=== PATIENT | female | born 1985 | race Caucasian/White ===

== ENCOUNTER 2016-08-16 15:37 | Emergency (ER) | payer SELFPAY ==
[~2016-08-16] VITALS: Ht 162.6 cm; Wt 71.0 kg
[~2016-08-16 15:37] MED LIST: CEPH500 PO
[2016-08-16 15:46] VITALS: BP 135/86; PULSE 85; RESP 16; TEMP 98.6; O2SAT 99
[2016-08-16] MEDS ORDERED: SODIUM CHLOR 0.9% 1000 ML INJ 1,000 ML IV SCH (15:53)
[2016-08-16] MEDS ORDERED: SODIUM CHLORIDE 0.9% FLUSH 5 ML FLUSH IVF PRN (16:00)
[2016-08-16] MEDS ORDERED: HYDROmorphone HCL PF 1 MG/ML VIAL IV PUSH ONE (16:00)
[2016-08-16] MEDS ORDERED: ONDANSETRON HCL 4 MG/2 ML VIAL IVP ONE (16:00)
--- NOTE | 2016-08-16 16:03 | PD ---
HPI Chief Complaint: Abdominal Pain Time Seen by Provider: 16:00 Travel History International Travel<30 days: No Contact w/Intl Traveler<30days: No Traveled to known affect area: No History of Present Illness HPI 31-year-old female with history of hepatitis C, presents to the ER today with right upper quadrant abdominal pains that started several days ago, constant in nature, 8 out of 10, along with nausea and green vomiting. She denies any diarrhea, fevers, or any other symptoms. Modifying Factors: None Associated Signs & Symptoms: Right upper Quadrant abdominal pains with nausea and vomiting Risk Factors: Hepatitis PFSH Past Medical History Bipolar Disorder: Yes Anxiety: Yes (DX 2007) Depression: Yes (DX 2007) Cancer: No Cardiovascular Problems: No Chemotherapy: No Diminished Hearing: No Endocrine: No GERD: Yes Hepatitis: Yes (C) Immune Disorder: No Implanted Vascular Access Dvce: No Musculoskeletal: No Neurologic: No Psychiatric: Yes Reproductive: No Respiratory: No Immunizations Current: Yes Radiation Therapy: No Sickle Cell Disease: No ?: Unknown LMP: 07/30/16 : 0 Past Surgical History Other Surgery: No Social History Alcohol Use: Yes (RARE) Tobacco Use: Yes (08/02 PPD) Substance Use: Yes (THC, HX DILAUDID denies recent) Allergies-Medications (Allergen,Severity, Reaction): Coded Allergies: No Known Allergies (Verified , 08/16/16) Reported Meds & Prescriptions Reported Meds & Active Scripts Active No Active Prescriptions or Reported Medications Review of Systems Except as stated in HPI: all other systems reviewed are Neg Physical Exam Narrative GENERAL: Well-nourished, well-developed young white female patient in no acute distress. SKIN: Warm and dry. HEAD: Normocephalic. EYES: No scleral icterus. No injection or drainage. NECK: Supple, trachea midline. CARDIOVASCULAR: Regular rate and rhythm without murmurs, gallops, or rubs. RESPIRATORY: Breath sounds equal bilaterally. No accessory muscle use. GASTROINTESTINAL: Abdomen soft, right upper quadrant tenderness without guarding or rebound, nondistended. MUSCULOSKELETAL: No cyanosis, or edema. BACK: Nontender without obvious deformity. No CVA tenderness. Data Data Last Documented VS Vital Signs Date Time Temp Pulse Resp B/P Pulse Ox O2 Delivery O2 Flow Rate FiO2 08/16/16 16:17 98 Room Air 08/16/16 15:46 98.6 85 16 135/86 Orders Complete Blood Count With Diff (08/16/16 15:53) Comprehensive Metabolic Panel (08/16/16 15:53) Lipase (08/16/16 15:53) Urinalysis - C+S If Indicated (08/16/16 15:53) Iv Access Insert/Monitor (08/16/16 15:53) Ecg Monitoring (08/16/16 15:53) Oximetry (08/16/16 15:53) Ondansetron Inj (Zofran Inj) (08/16/16 16:00) Sodium Chlor 0.9% 1000 Ml Inj (Ns 1000 M (08/16/16 15:53) Sodium Chloride 0.9% Flush (Ns Flush) (08/16/16 16:00) Ed Urine Pregnancytest Poc (08/16/16 15:53) Hydromorphone Pf Inj (Dilaudid Pf Inj) (08/16/16 16:00) Ct Abd/Pel W Iv Contrast(Rout) (08/16/16 16:00) Iohexol 350 Inj (Omnipaque 350 Inj) (08/16/16 18:08) Labs Laboratory Tests Test 08/16/16 16:11 White Blood Count 3.6 TH/MM3 Red Blood Count 4.64 MIL/MM3 Hemoglobin 12.8 GM/DL Hematocrit 37.5 % Mean Corpuscular Volume 80.8 FL Mean Corpuscular Hemoglobin 27.6 PG Mean Corpuscular Hemoglobin 34.2 % Concent Red Cell Distribution Width 12.8 % Platelet Count 328 TH/MM3 Mean Platelet Volume 8.1 FL Neutrophils (%) (Auto) 47.4 % Lymphocytes (%) (Auto) 37.8 % Monocytes (%) (Auto) 11.9 % Eosinophils (%) (Auto) 2.0 % Basophils (%) (Auto) 0.9 % Neutrophils # (Auto) 1.7 TH/MM3 Lymphocytes # (Auto) 1.4 TH/MM3 Monocytes # (Auto) 0.4 TH/MM3 Eosinophils # (Auto) 0.1 TH/MM3 Basophils # (Auto) 0.0 TH/MM3 CBC Comment DIFF FINAL Differential Comment Urine Collection Type CLEAN CATCH Urine Color YELLOW Urine Turbidity SLIGHT Urine pH 6.5 Urine Specific [place] 1.022 Urine Protein NEG mg/dL Urine Glucose (UA) NEG mg/dL Urine Ketones TRACE mg/dL Urine Occult Blood TRACE Urine Nitrite NEG Urine Bilirubin NEG Urine Leukocyte Esterase NEG Urine RBC 4-9 /hpf Urine WBC 0-2 /hpf Urine Squamous Epithelial 0-5 /hpf Cells Urine Bacteria OCC /hpf Urine Mucus OCC /lpf Microscopic Urinalysis Comment CULT NOT INDICATED Sodium Level 140 MEQ/L Potassium Level 3.9 MEQ/L Chloride Level 105 MEQ/L Carbon Dioxide Level 25.3 MEQ/L Anion Gap 10 MEQ/L Blood Urea Nitrogen 12 MG/DL Creatinine 0.74 MG/DL Estimat Glomerular Filtration 93 ML/MIN Rate Random Glucose 105 MG/DL Calcium Level 8.8 MG/DL Total Bilirubin 0.3 MG/DL Aspartate Amino Transf 11 U/L (AST/SGOT) Alanine Aminotransferase 17 U/L (ALT/SGPT) Alkaline Phosphatase 65 U/L Total Protein 8.1 GM/DL Albumin 3.4 GM/DL Lipase 175 U/L MDM Medical Decision Making Medical Screen Exam Complete: Yes Emergency Medical Condition: Yes Medical Record Reviewed: Yes Interpretation(s) Laboratory Tests Test 08/16/16 16:11 White Blood Count 3.6 TH/MM3 (4.0-11.0) Monocytes (%) (Auto) 11.9 % (0.0-8.0) Neutrophils # (Auto) 1.7 TH/MM3 (1.8-7.7) Urine Ketones TRACE mg/dL (NEG) Urine Occult Blood TRACE (NEG) Urine RBC 4-9 /hpf (0-3) Urine Bacteria OCC /hpf (NONE) Aspartate Amino Transf 11 U/L (15-37) (AST/SGOT) Last 24 hours Impressions Abdomen/Pelvis CT 08/16/16 1600 Signed Impressions: Service Date/Time: July 17:54 - CONCLUSION: 1. Small nonobstructing left renal calculus. 2. The gallbladder is unremarkable in appearance. 3. Unremarkable bowel gas pattern with no inflammatory change or obstruction 4. Stable sclerosis involving the left sacroiliac joint. Noah Miller MD Differential Diagnosis Right upper quadrant abdominal painshepatitis versus cholecystitis versus gastroenteritis versus renal colic Narrative Course Lab work shows no significant metabolic issues or UTI. CT did not show any signs of acute intra-abdominal processes. LFTs are fairly normal. At this point, I do not see any signs of significant acute processes and my plan would be to release the patient with symptomatic relief and follow-up to primary care physician. The plan has been discussed with the patient and she states understanding. Diagnosis Primary Impression: UNSPECIFIED ABDOMINAL PAIN Med/Other Pt SpecificInfo: Prescription(s) given Scripts Ondansetron Odt (Zofran Odt)4 Mg Tab4 Mg SL Q6HR PRN (Nausea/Vomiting) #7 TAB Ref 0 Prov:Nino Alvarez MD 08/16/16 Dicyclomine (Bentyl)20 Mg Tab20 Mg PO TID PRN (Bowel Management) #15 TAB Ref 0 Prov:Nino Alvarez MD 08/16/16 Disposition: 01 DISCHARGE HOME Condition: Stable Nino Alvarez MD Aug 16, 2016 16:03
[2016-08-16 16:17] VITALS: O2SAT 98
[2016-08-16 16:33] LABS: AUTOMATED NEUTROPHIL # 1.7 TH/MM3 (1.8-7.7); BASOPHIL % 0.9 % (0.0-2.0); EOSINOPHIL # 0.1 TH/MM3 (0-0.4); HEMATOCRIT 37.5 % (35.0-46.0); HEMO FLAGS DIFF FINAL; LYMPH % 37.8 % (9.0-44.0); LYMPHOCYTE # 1.4 TH/MM3 (1.0-4.8); MEAN CELL VOLUME 80.8 FL (80.0-100.0); MEAN CORPUSCULAR HEMOGLOBIN 27.6 PG (27.0-34.0); MEAN CORPUSCULAR HGB CONC 34.2 % (32.0-36.0); MONO % 11.9 % (0.0-8.0); NEUT % 47.4 % (16.0-70.0); PLATELET COUNT 328 TH/MM3 (150-450); RED BLOOD COUNT 4.64 MIL/MM3 (4.00-5.30); RED CELL DISTRIBUTION WIDTH 12.8 % (11.6-17.2); WHITE BLOOD COUNT 3.6 TH/MM3 (4.0-11.0)
[2016-08-16 16:34] LABS: BLOOD, URINE TRACE (NEG); GLUCOSE,URINE NEG (NEG); KETONE, URINE TRACE mg/dL (NEG); NITRITE,URINE NEG (NEG); PH, URINE 6.5 (5.0-8.5)
[2016-08-16 16:44] LABS: METHOD OF COLLECTION CLEAN CATCH; MUCUS URINE OCC /lpf (OCC); SQUAMOUS EPITHELIAL CELL URINE 0-5 /hpf (0-5); URINE COLOR YELLOW (YELLW/STRAW)
[2016-08-16 16:45] LABS: WBC, URINE 0-2 /hpf (0-5)
[2016-08-16 16:46] LABS: BACTERIA, URINE OCC /hpf; COMMENT (UR) CULT NOT INDICATED; CULTURE IF INDICATED CULT NOT INDICATED
[2016-08-16 16:53] LABS: CHLORIDE 105 MEQ/L (98-107); POTASSIUM 3.9 MEQ/L (3.5-5.1); SODIUM (NA) 140 MEQ/L (136-145)
[2016-08-16 16:56] LABS: ANION GAP 10 MEQ/L (5-15); BICARBONATE 25.3 MEQ/L (21.0-32.0)
[2016-08-16 16:57] LABS: BLOOD UREA NITROGEN 12 MG/DL (7-18)
[2016-08-16 16:59] LABS: ALT (GPT) 17 U/L (10-53); AST (GOT) 11 U/L (15-37)
[2016-08-16 17:00] LABS: GLOMERULAR FILTRATION RATE 93 ML/MIN (>89)
[2016-08-16 17:01] LABS: TOTAL BILIRUBIN ADULT 0.3 MG/DL (0.2-1.0)
[2016-08-16 17:02] LABS: ALKALINE PHOSPHATASE 65 U/L (45-117)
[2016-08-16] MEDS ORDERED: IOHEXOL 350 MG/ML 10 ML VIAL (for RAD DIAG) IV ONE (18:08)
--- NOTE | 2016-08-16 18:17 | RADHPO ---
EXAM DATE/TIME: 08/16/2016 17:54 [facility] COMPARISON: CT ABDOMEN & PELVIS W/O CONTRAST, April 14, 2016, 17:08. INDICATIONS : Right upper quadrant abdominal pain. Nausea. Vomiting. History of known renal calculi. IV CONTRAST: 75 cc Omnipaque 350 (iohexol) IV ORAL CONTRAST: No oral contrast ingested. RADIATION DOSE: 9.00 CTDIvol (mGy) MEDICAL HISTORY : Gastroesophageal reflux disease. Hepatitis C. SURGICAL HISTORY : None. ENCOUNTER: Initial ACUITY: 3 days PAIN SCALE: 8/10 LOCATION: Right upper quadrant TECHNIQUE: Volumetric scanning of the abdomen and pelvis was performed. Using automated exposure control and ad justment of the mA and/or kV according to patient size, radiation dose was kept as low as reasonably achievable to obtain optimal diagnostic quality images. FINDINGS: LOWER LUNGS: The visualized lower lungs are clear. LIVER: Homogeneous density without lesion. There is no dilation of the biliary tree. No calcified gallston es. SPLEEN: Normal size without lesion. PANCREAS: Within normal limits. KIDNEYS: Normal in size and shape. There is no mass,or hydronephrosis. There is a small nonobstructing left r enal calculus on image #36 of the axial sequences. ADRENAL GLANDS: Within normal limits. VASCULAR: There is no aortic aneurysm. BOWEL/MESENTERY: The stomach, small bowel, and colon demonstrate no acute abnormality. There is no free intraperitone al air or fluid. ABDOMINAL WALL: Within normal limits. RETROPERITONEUM: There is no lymphadenopathy. BLADDER: No wall thickening or mass. REPRODUCTIVE: Within normal limits. INGUINAL: There is no lymphadenopathy or hernia. MUSCULOSKELETAL: Severe sclerosis is again noted surrounding the left sacroiliac joint. CONCLUSION: 1. Small nonobstructing left renal calculus. 2. The gallbladder is unremarkable in appearance. 3. Unremarkable bowel gas pattern with no inflammatory change or obstruction 4. Stable sclerosis involving the left sacroiliac joint. Noah Miller MD on August 16, 2016 at 18:12 Board Certified Radiologist. This report was verified electronically.
[2016-08-16] MEDS ORDERED: ZOFR4TAB3 SL (18:26)
[2016-08-16] MEDS ORDERED: BENT20TA PO (18:26)
[2016-08-16] MEDS ORDERED: DICYCLOMINE HCL 20 MG/2 ML VIAL IM ONE (18:30)
[2016-08-16 19:06] VITALS: BP 140/84; TEMP 97.9
== END 2016-08-16 19:09 | disposition home or self-care (01) ==
LOC: PHED 15:37
DX: R10.9 Unspecified abdominal pain (principal); R11.2 Nausea with vomiting, unspecified; K21.9 Gastro-esophageal reflux disease without esophagitis; F17.210 Nicotine dependence, cigarettes, uncomplicated; F12.90 Cannabis use, unspecified, uncomplicated; F11.90 Opioid use, unspecified, uncomplicated
CPT/HCPCS: 74177; 80053; 81001; 83690; 84703; 85025; 96361; 96372; 96374; 96375; 99284; J0500; J1170; J2405; J7030; Q9967

== ENCOUNTER 2017-04-12 09:36 | Emergency (ER) | payer SELFPAY ==
[~2017-04-12] VITALS: Ht 162.6 cm; Wt 68.5 kg
[~2017-04-12 09:36] MED LIST changes: +BENT20TA PO; -CEPH500 PO; +ZOFR4TAB3 SL
[2017-04-12 09:41] VITALS: BP 139/77; PULSE 82; RESP 18; TEMP 98.8; O2SAT 97
--- NOTE | 2017-04-12 09:51 | PD ---
HPI Chief Complaint: GI Complaint Time Seen by Provider: 09:51 Travel History International Travel<30 days: No Contact w/Intl Traveler<30days: No Traveled to known affect area: No History of Present Illness HPI 31-year-old female came to the emergency room with history of left flank and left lower abdomen pain. Patient says this has been going on for past 3 days and the pain comes and goes. Currently it is 4 out of 10. Last night she was curled into a ball because of the pain and at that time it was 7 out of 10. She has been nauseous and throwing up. Last vomiting was 1 hour ago. Patient says she has had few episodes of diarrhea but no blood in her stool. No history of dysuria or hematuria. Upon asking patient said that could be a chance of being since she has had unprotected sex with her boyfriend. Vital signs were stable. She didn't appear to be in any significant distress when I saw her. Patient has been in the emergency room multiple times in the past for abdominal pain. 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 No current vaginal discharge. Patient said 2 weeks ago she had some discharge that was fishy in odor. This has resolved since. PFSH Past Medical History Narrative Medical List of her past medical, surgical, social and family history is reviewed from the nursing note. Bipolar Disorder: Yes Anxiety: Yes (DX 2007) Depression: Yes (DX 2007) Cancer: No Cardiovascular Problems: No Chemotherapy: No Diminished Hearing: No Endocrine: No GERD: Yes Hepatitis: Yes (C) Immune Disorder: No Implanted Vascular Access Dvce: No Musculoskeletal: No Neurologic: No Psychiatric: Yes Reproductive: No Respiratory: No Immunizations Current: Yes Radiation Therapy: No Sickle Cell Disease: No ?: Not LMP: 03/2017 : 0 Past Surgical History Other Surgery: No Social History Alcohol Use: Yes (RARE) Tobacco Use: Yes (08/02 PPD) Substance Use: Yes (THC, HX DILAUDID denies recent) Allergies-Medications (Allergen,Severity, Reaction): Coded Allergies: No Known Allergies (Verified , 04/12/17) Comments No known drug allergies. Reported Meds & Prescriptions Reported Meds & Active Scripts Active Ibuprofen 600 Mg Tab 600 Mg PO Q6H PRN Zofran Odt (Ondansetron Odt) 4 Mg Tab 4 Mg SL Q6HR PRN Narrative Medication List of her home medications reviewed from the nursing note. Review of Systems Except as stated in HPI: all other systems reviewed are Neg Physical Exam Narrative GENERAL: Awake, alert, slightly anxious but no obvious distress SKIN: Focused skin assessment warm/dry. HEAD: Atraumatic. Normocephalic. EYES: Pupils equal and round. No scleral icterus. No injection or drainage. ENT: No nasal bleeding or discharge. Mucous membranes pink and moist. NECK: Trachea midline. No JVD. CARDIOVASCULAR: Regular rate and rhythm. No murmur appreciated. RESPIRATORY: No accessory muscle use. Clear to auscultation. Breath sounds equal bilaterally. GASTROINTESTINAL: Abdomen soft, non-tender, nondistended. Hepatic and splenic margins not palpable. MUSCULOSKELETAL: No obvious deformities. No clubbing. No cyanosis. No edema. NEUROLOGICAL: Awake and alert. No obvious cranial nerve deficits. Motor grossly within normal limits. Normal speech. PSYCHIATRIC: Appropriate mood and affect; insight and judgment normal. Data Data Last Documented VS Vital Signs Date Time Temp Pulse Resp B/P (MAP) Pulse Ox O2 Delivery O2 Flow Rate FiO2 04/12/17 12:03 04/12/17 11:38 81 18 98 Room Air 04/12/17 09:41 98.8 Orders Orders Complete Blood Count With Diff (04/12/17 10:01) Comprehensive Metabolic Panel (04/12/17 10:01) Lipase (04/12/17 10:01) Urinalysis - C+S If Indicated (04/12/17 10:01) Iv Access Insert/Monitor (04/12/17 10:01) Ecg Monitoring (04/12/17 10:01) Oximetry (04/12/17 10:01) Ondansetron Inj (Zofran Inj) (04/12/17 10:15) Sodium Chlor 0.9% 1000 Ml Inj (Ns 1000 M (04/12/17 10:01) Sodium Chloride 0.9% Flush (Ns Flush) (04/12/17 10:15) Ketorolac Inj (Toradol Inj) (04/12/17 10:15) Ed Urine Pregnancytest Poc (04/12/17 10:01) Ct Abd/Pel W/O Iv Contrast (04/12/17 ) Labs Laboratory Tests Test 04/12/17 10:10 White Blood Count 5.9 TH/MM3 Red Blood Count 4.88 MIL/MM3 Hemoglobin 12.9 GM/DL Hematocrit 37.8 % Mean Corpuscular Volume 77.5 FL Mean Corpuscular Hemoglobin 26.5 PG Mean Corpuscular Hemoglobin Concent 34.2 % Red Cell Distribution Width 13.6 % Platelet Count 271 TH/MM3 Mean Platelet Volume 8.3 FL Neutrophils (%) (Auto) 73.7 % Lymphocytes (%) (Auto) 17.9 % Monocytes (%) (Auto) 7.3 % Eosinophils (%) (Auto) 0.8 % Basophils (%) (Auto) 0.3 % Neutrophils # (Auto) 4.4 TH/MM3 Lymphocytes # (Auto) 1.1 TH/MM3 Monocytes # (Auto) 0.4 TH/MM3 Eosinophils # (Auto) 0.0 TH/MM3 Basophils # (Auto) 0.0 TH/MM3 CBC Comment DIFF FINAL Differential Comment Urine Collection Type CLEAN CATCH Urine Color YELLOW Urine Turbidity CLEAR Urine pH 6.0 Urine Specific [place] 1.024 Urine Protein NEG mg/dL Urine Glucose (UA) NEG mg/dL Urine Ketones NEG mg/dL Urine Occult Blood MOD Urine Nitrite NEG Urine Bilirubin NEG Urine Leukocyte Esterase NEG Urine RBC 10-14 /hpf Urine WBC 3-5 /hpf Urine Squamous Epithelial Cells 0-5 /hpf Microscopic Urinalysis Comment CULT NOT INDICATED Urine Collection Time 10:10 Blood Urea Nitrogen 20 MG/DL Creatinine 0.75 MG/DL Random Glucose 110 MG/DL Total Protein 8.4 GM/DL Albumin 3.3 GM/DL Calcium Level 8.8 MG/DL Alkaline Phosphatase 77 U/L Aspartate Amino Transf (AST/SGOT) 17 U/L Alanine Aminotransferase (ALT/SGPT) 19 U/L Total Bilirubin 0.5 MG/DL Sodium Level 135 MEQ/L Potassium Level 4.2 MEQ/L Chloride Level 100 MEQ/L Carbon Dioxide Level 25.5 MEQ/L Anion Gap 10 MEQ/L Estimat Glomerular Filtration Rate 91 ML/MIN Lipase 165 U/L [facility] Medical Decision Making Medical Screen Exam Complete: Yes Emergency Medical Condition: Yes Medical Record Reviewed: Yes Differential Diagnosis Renal colic, UTI, musculoskeletal pain, colitis Narrative Course 11:42 AM blood test results of back and within normal limit. UA has some blood in it. CT scan shows nephrocalcinosis and a chronic left sacroiliitis. Based on this I am comfortable discharging the patient home. She was given pain medication as well as medicine for nausea. Procedures EKG Prior to Arrival: No Diagnosis Primary Impression: Acute gastroenteritis Additional Impression: chronic sacroiliitis Referrals: Primary Care Physician Additional Instructions: Please return to the ER if the condition worsens or any other new concerns. Take the medication for nausea and pain that has been given to you as per the prescription direction. Drink lots of fluid. Follow-up with your primary care. Med/Other Pt SpecificInfo: Prescription(s) given Scripts Ibuprofen (Ibuprofen) 600 Mg Tab 600 MG PO Q6H Y for Pain/Inflammation, #40 TAB 0 Refills Prov: Adeline Parekh MD 04/12/17 Ondansetron Odt (Zofran Odt) 4 Mg Tab 4 MG SL Q6HR Y for Nausea/Vomiting, #15 TAB 0 Refills Prov: Adeline Parekh MD 04/12/17 Disposition: 01 DISCHARGE HOME Condition: Stable Adeline Parekh MD Apr 12, 2017 09:51
[2017-04-12] MEDS ORDERED: SODIUM CHLOR 0.9% 1000 ML INJ 1,000 ML IV SCH (10:01)
[2017-04-12 10:05] VITALS: O2SAT 96
[2017-04-12] MEDS ORDERED: ONDANSETRON HCL 4 MG/2 ML VIAL IVP ONE (10:15)
[2017-04-12] MEDS ORDERED: KETOROLAC TROMETHAMINE 30 MG/ML (IVP) VIAL IVP ONE (10:15)
[2017-04-12] MEDS ORDERED: SODIUM CHLORIDE 0.9% FLUSH 10 ML FLUSH IV FLUSH PRN (10:15)
[2017-04-12 10:28] LABS: BLOOD, URINE MOD (NEG); GLUCOSE,URINE NEG (NEG); KETONE, URINE NEG (NEG); NITRITE,URINE NEG (NEG)
[2017-04-12 10:31] LABS: CHLORIDE 100 MEQ/L (98-107); POTASSIUM 4.2 MEQ/L (3.5-5.1); SODIUM (NA) 135 MEQ/L (136-145)
[2017-04-12 10:32] LABS: AUTOMATED NEUTROPHIL # 4.4 TH/MM3 (1.8-7.7); BASOPHIL % 0.3 % (0.0-2.0); EOSINOPHIL % 0.8 % (0.0-4.0); HEMATOCRIT 37.8 % (35.0-46.0); HEMO FLAGS DIFF FINAL; LYMPH % 17.9 % (9.0-44.0); LYMPHOCYTE # 1.1 TH/MM3 (1.0-4.8); MEAN CELL VOLUME 77.5 FL (80.0-100.0); MEAN CORPUSCULAR HEMOGLOBIN 26.5 PG (27.0-34.0); MEAN CORPUSCULAR HGB CONC 34.2 % (32.0-36.0); MONO % 7.3 % (0.0-8.0); NEUT % 73.7 % (16.0-70.0); PLATELET COUNT 271 TH/MM3 (150-450); RED BLOOD COUNT 4.88 MIL/MM3 (4.00-5.30); RED CELL DISTRIBUTION WIDTH 13.6 % (11.6-17.2); WHITE BLOOD COUNT 5.9 TH/MM3 (4.0-11.0)
[2017-04-12 10:35] LABS: ANION GAP 10 MEQ/L (5-15); BICARBONATE 25.5 MEQ/L (21.0-32.0); BLOOD UREA NITROGEN 20 MG/DL (7-18)
[2017-04-12 10:36] VITALS: BP 125/75; PULSE 64; RESP 18; O2SAT 97
[2017-04-12 10:37] LABS: ALT (GPT) 19 U/L (10-53); AST (GOT) 17 U/L (15-37)
[2017-04-12 10:38] LABS: GLOMERULAR FILTRATION RATE 91 ML/MIN (>89)
[2017-04-12 10:39] LABS: TOTAL BILIRUBIN ADULT 0.5 MG/DL (0.2-1.0)
[2017-04-12 10:40] LABS: ALKALINE PHOSPHATASE 77 U/L (45-117)
[2017-04-12 11:05] LABS: COMMENT (UR) CULT NOT INDICATED; CULTURE IF INDICATED CULT NOT INDICATED; METHOD OF COLLECTION CLEAN CATCH; SQUAMOUS EPITHELIAL CELL URINE 0-5 /hpf (0-5); URINE COLOR YELLOW (YELLW/STRAW)
--- NOTE | 2017-04-12 11:31 | RADRPT ---
EXAM DATE/TIME: 04/12/2017 10:23 [facility] COMPARISON: CT ABDOMEN & PELVIS W/O CONTRAST, April 14, 2016, 17:08. INDICATIONS : Vomiting and left lower quadrant pain and cramping x 2 days. ORAL CONTRAST: No oral contrast ingested. RADIATION DOSE: 7.37 CTDIvol (mGy) MEDICAL HISTORY : Gastroesophageal reflux disease. Hepatitis C. Renal calculi. SURGICAL HISTORY : None. ENCOUNTER: Initial ACUITY: 2 days PAIN SCALE: 5/10 LOCATION: Left lower quadrant TECHNIQUE: Volumetric scanning of the abdomen and pelvis was performed. Using automated exposure control and ad justment of the mA and/or kV according to patient size, radiation dose was kept as low as reasonably achievable to obtain optimal diagnostic quality images. DICOM format image data is available electro nically for review and comparison. FINDINGS: There are tiny calcified non-obstructing right renal calculi with the largest measuring approximately 2 mm. No acute obstructive uropathy is noted. Hepatosplenomegaly is again noted. Evaluation of th e solid organs of the abdomen is limited by the lack of intravenous contrast. The gallbladder is unr emarkable without calcified gallstones. There is no acute diverticulitis. The appendix is normal. No ascites is noted. The uterus is unremarkable. No lymphadenopathy is noted. There is evidence of persistent sclerosis surrounding the left sacroiliac joint suggesting unilateral left-sided sacroili itis. The visualized lung bases are clear. CONCLUSION: 1. Tiny calcified non-obstructing right renal calculi. 2. Hepatosplenomegaly. 3. Sclerosis surrounding the left sacroiliac joint consistent with unilateral left-sided sacroiliitis which is unchanged compared to the previous examination. Pradeep Kat MD on April 12, 2017 at 10:35 Board Certified Radiologist. This report was verified electronically.
[2017-04-12 11:38] VITALS: BP 117/60; PULSE 81; RESP 18; O2SAT 98
[2017-04-12] MEDS ORDERED: ZOFR4TAB3 SL (11:44)
[2017-04-12] MEDS ORDERED: IBUP-232 PO (11:44)
== END 2017-04-12 12:12 | disposition home or self-care (01) ==
LOC: PHED 09:36
DX: K52.9 Noninfective gastroenteritis and colitis, unspecified (principal); M46.1 Sacroiliitis, not elsewhere classified; K21.9 Gastro-esophageal reflux disease without esophagitis; F17.210 Nicotine dependence, cigarettes, uncomplicated
CPT/HCPCS: 74176; 80053; 81001; 83690; 84703; 85025; 96361; 96374; 96375; 99285; J1885; J2405; J7030

== ENCOUNTER 2017-06-08 09:22 | Emergency (ER) | payer SELFPAY ==
[~2017-06-08] VITALS: Ht 162.6 cm; Wt 71.2 kg
[~2017-06-08 09:22] MED LIST changes: -BENT20TA PO; +IBUP-232 PO
[2017-06-08 09:29] VITALS: BP 141/77; PULSE 68; RESP 16; TEMP 98.5; O2SAT 98
[2017-06-08 09:56] LABS: BLOOD, URINE LARGE (NEG); GLUCOSE,URINE NEG (NEG); KETONE, URINE NEG (NEG); NITRITE,URINE NEG (NEG)
[2017-06-08 10:00] LABS: METHOD OF COLLECTION CLEAN CATCH; RBC, URINE INNUM /hpf (0-3); SQUAMOUS EPITHELIAL CELL URINE > 8 /hpf (0-5); URINE COLOR YELLOW (YELLW/STRAW)
[2017-06-08] MEDS ORDERED: SODIUM CHLOR 0.9% 1000 ML INJ 1,000 ML IV ONE (10:00)
[2017-06-08] MEDS ORDERED: ONDANSETRON HCL 4 MG/2 ML VIAL IV PUSH ONE (10:00)
[2017-06-08] MEDS ORDERED: KETOROLAC TROMETHAMINE 30 MG/ML (IVP) VIAL IV PUSH ONE (10:00)
[2017-06-08 10:01] LABS: BACTERIA, URINE FEW /hpf; COMMENT (UR) CULTURE INDICATED; CULTURE IF INDICATED CULTURE INDICATED
[2017-06-08 10:38] LABS: POTASSIUM 4.2 MEQ/L (3.5-5.1)
[2017-06-08 10:41] LABS: BICARBONATE 24.5 MEQ/L (21.0-32.0)
[2017-06-08 11:14] VITALS: BP 128/69; PULSE 57; RESP 16; O2SAT 99
[2017-06-08] MEDS ORDERED: ZOFR4TAB3 SL (11:20)
[2017-06-08] MEDS ORDERED: MACR100C2 PO (11:20)
--- NOTE | 2017-06-08 11:20 | PD ---
HPI Chief Complaint: GI Complaint Time Seen by Provider: 09:54 Travel History International Travel<30 days: No Contact w/Intl Traveler<30days: No Traveled to known affect area: No History of Present Illness HPI 32 y/o female presents with nonbloody emesis and diarrhea with lower abdominal cramping and starting her menstrual cycle today. She states that she feels like she also is developing a urinary tract infection as she is urinating a lot and has pressure. She states that she feels worse when she moves around. She denies other modifying factors. She denies any other concurrent complaints. She states she took a Suboxone earlier this morning. Quality is crampy. Severity is moderate. She denies specific migration the pain. She denies sick contacts. She states she's had about 4 episodes or so a day over the past couple days of diarrhea. Duration is couple of days. PFSH Past Medical History Medical History: Denies Significant Hx Bipolar Disorder: Yes Anxiety: Yes Depression: Yes Cancer: No Cardiovascular Problems: No Chemotherapy: No Diminished Hearing: No Endocrine: No GERD: Yes Hepatitis: Yes (C) Immune Disorder: No Implanted Vascular Access Dvce: No Kidney Stones: Yes Musculoskeletal: No Neurologic: No Psychiatric: Yes Reproductive: No Respiratory: No Immunizations Current: Yes Radiation Therapy: No Sickle Cell Disease: No Tetanus Vaccination: Unknown ?: Not LMP: 06/08/17 : 0 Past Surgical History Surgical History: No Previous Surgery Other Surgery: No Social History Alcohol Use: Yes (RARE) Tobacco Use: Yes (2-3 CIGS A DAY) Substance Use: No Allergies-Medications (Allergen,Severity, Reaction): Coded Allergies: No Known Allergies (Verified Adverse Reaction, Unknown, 06/08/17) Reported Meds & Prescriptions Reported Meds & Active Scripts Active Macrobid (Nitrofurantoin Monoh/Nitrofur Macro) 100 Mg Cap 100 Mg PO BID 3 Days Zofran Odt (Ondansetron Odt) 4 Mg Tab 4 Mg SL Q6HR PRN Review of Systems Except as stated in HPI: all other systems reviewed are Neg Physical Exam Narrative GENERAL: Well-nourished, well-developed patient. well appearing SKIN: Warm and dry. HEAD: Normocephalic and atraumatic. EYES: No injection or drainage. ENT: No nasal drainage noted. NECK: Supple, trachea midline. CARDIOVASCULAR: Regular rate and rhythm RESPIRATORY: no increased effort. No accessory muscle use. GASTROINTESTINAL: Abdomen soft, non-tender, nondistended. EXTREMITIES: No edema. NEUROLOGICAL: Awake and alert. Motor and sensory grossly within normal limits. Normal speech. Data Data Last Documented VS Vital Signs Date Time Temp Pulse Resp B/P (MAP) Pulse Ox O2 Delivery O2 Flow Rate FiO2 06/08/17 11:22 06/08/17 11:14 57 16 99 Room Air 06/08/17 09:29 98.5 Orders Orders Urinalysis - C+S If Indicated (06/08/17 09:35) Ed Urine Pregnancytest Poc (06/08/17 09:35) Sodium Chlor 0.9% 1000 Ml Inj (Ns 1000 M (06/08/17 10:00) Ondansetron Inj (Zofran Inj) (06/08/17 10:00) Ketorolac Inj (Toradol Inj) (06/08/17 10:00) Basic Metabolic Panel (Bmp) (06/08/17 10:00) Urine Culture (06/08/17 09:40) Oral Rehydration (06/08/17 10:48) Ed Discharge Order (06/08/17 11:31) Labs Laboratory Tests Test 06/08/17 09:40 06/08/17 10:00 Urine Collection Type CLEAN CATCH Urine Color YELLOW Urine Turbidity SLIGHT Urine pH 6.0 Urine Specific [place] 1.028 Urine Protein 30 mg/dL Urine Glucose (UA) NEG mg/dL Urine Ketones NEG mg/dL Urine Occult Blood LARGE Urine Nitrite NEG Urine Bilirubin NEG Urine Leukocyte Esterase SMALL Urine RBC INNUM /hpf Urine WBC 25-49 /hpf Urine Squamous Epithelial Cells > 8 /hpf Urine Bacteria FEW /hpf Microscopic Urinalysis Comment CULTURE INDICATED Urine Collection Time 09:40 Blood Urea Nitrogen 18 MG/DL Creatinine 0.75 MG/DL Random Glucose 104 MG/DL Calcium Level 8.6 MG/DL Sodium Level 139 MEQ/L Potassium Level 4.2 MEQ/L Chloride Level 107 MEQ/L Carbon Dioxide Level 24.5 MEQ/L Anion Gap 8 MEQ/L Estimat Glomerular Filtration Rate 91 ML/MIN MDM Medical Decision Making Medical Screen Exam Complete: Yes Emergency Medical Condition: Yes Medical Record Reviewed: Yes (pmh confirmed) Interpretation(s) CBC & BMP Diagram 06/08/17 10:00 Calcium Level 8.6 Differential Diagnosis UTI, , gastroenteritis, dehydration Narrative Course Will check BMP, urinalysis, test and dose with IV fluids, Toradol, Zofran and reevaluate BMP is within normal limits, test is negative, urinalysis shows contamination versus infection but given symptoms we'll treat. No emesis here and tolerating oral rehydration. Patient denies any new complaints and states that they are feeling better. Patient happy with care, all questions answered. Patient knows that follow up is incumbent on them and to return to the emergency room immediately if new or worsening symptoms develop. Patient given strict return precautions, vitals reviewed and are normal, agrees to further workup as an outpatient. Diagnosis Primary Impression: Vomiting and diarrhea Additional Impressions: Abdominal cramping Menses painful Patient Instructions: General Instructions Additional Instructions: Return as needed, Zofran as needed, follow with primary for recheck this week, keep hydrated Med/Other Pt SpecificInfo: Prescription(s) given Scripts Nitrofurantoin Monohydrate Macrocrystals (Macrobid) 100 Mg Cap 100 MG PO BID for Infection for 3 Days, #6 CAP 0 Refills Prov: Reyna Naylor MD 06/08/17 Ondansetron Odt (Zofran Odt) 4 Mg Tab 4 MG SL Q6HR Y for Nausea/Vomiting, #15 TAB 0 Refills Prov: Reyna Naylor MD 06/08/17 Disposition: 01 DISCHARGE HOME Condition: Stable Reyna Naylor MD Jun 08, 2017 11:20
== END 2017-06-08 11:42 | disposition home or self-care (01) ==
LOC: PHED 09:22
DX: R11.10 Vomiting, unspecified (principal); R19.7 Diarrhea, unspecified; R10.30 Lower abdominal pain, unspecified; N94.6 Dysmenorrhea, unspecified; R35.0 Frequency of micturition; Z72.0 Tobacco use
CPT/HCPCS: 80048; 81001; 84703; 87086; 96361; 96374; 96375; 99284; J1885; J2405; J7030

== ENCOUNTER 2017-11-23 12:13 | Emergency (ER) | payer OTHER ==
[~2017-11-23 12:13] MED LIST changes: -IBUP-232 PO; +MACR100C2 PO
[2017-11-23 12:16] VITALS: BP 113/56; PULSE 77; RESP 16; TEMP 98.4; O2SAT 99
[2017-11-23] MEDS ORDERED: PREN29TA PO (12:34)
[2017-11-23] MEDS ORDERED: AMOXICILLIN/CLAVULANATE K 875 MG TAB PO ONE (13:00)
--- NOTE | 2017-11-23 13:24 | PD ---
HPI Chief Complaint: Skin Problem Time Seen by Provider: 12:45 Travel History International Travel<30 days: No Contact w/Intl Traveler<30days: No Traveled to known affect area: No History of Present Illness HPI 32-year-old female presents emergency department with bilateral breast tenderness and swelling and erythema. Patient states it started with a small area in both medial breast several days ago. Is now worsened over the last 3 days. Patient states she is 14 weeks . She has had no discharge or open wounds. It is painful as opposed to itchy. She has had no fevers or chills. No chest congestion or other symptoms. She has had no abdominal complaints whatsoever. She has no known drug allergies. PFSH Past Medical History Bipolar Disorder: Yes Anxiety: Yes Depression: Yes Cancer: No Cardiovascular Problems: No Chemotherapy: No Diminished Hearing: No Endocrine: No GERD: Yes Hepatitis: Yes (C) Immune Disorder: No Implanted Vascular Access Dvce: No Kidney Stones: Yes Musculoskeletal: No Neurologic: No Psychiatric: Yes Reproductive: No Respiratory: No Immunizations Current: Yes Radiation Therapy: No Sickle Cell Disease: No ?: LMP: 14 weeks preg : 0 Past Surgical History Other Surgery: No Social History Alcohol Use: Yes (RARE) Tobacco Use: Yes (2-3 CIGS A DAY) Substance Use: No Allergies-Medications (Allergen,Severity, Reaction): Coded Allergies: No Known Allergies (Verified Adverse Reaction, Unknown, 11/23/17) Reported Meds & Prescriptions Reported Meds & Active Scripts Active Reported Plus Iron 29-1 mg ( Vit-Iron Carbonyl) 29 Mg Iron-1 Mg Tab 1 Tab PO DAILY Review of Systems Except as stated in HPI: all other systems reviewed are Neg General / Constitutional: No: Fever, Chills Eyes: No: Visual changes HENT: No: Headaches Cardiovascular: No: Chest Pain or Discomfort Respiratory: No: Shortness of Breath Gastrointestinal: No: Abdominal Pain Genitourinary: No: Dysuria Musculoskeletal: No: Pain Skin: Positive Lesions (See history of present illness per), No Rash Neurologic: No: Weakness Psychiatric: No: Depression Endocrine: No: Polydipsia Hematologic/Lymphatic: No: Easy Bruising Physical Exam Narrative GENERAL: Patient appears in mild distress per SKIN: Warm and dry. Normal color. Normal turgor. Patient's breasts are examined with nursing staff as supervisor respiratory. Patient is noted to have some erythematous swollen areas along both medial aspects of the breasts, without palpable abscess. There is induration and warmth and erythema. There is no expressible drainage from the nipples. It appears consistent with mastitis. HEAD: Atraumatic. Normocephalic. EYES: Pupils equal and round. No scleral icterus. No injection or drainage. ENT: No nasal bleeding or discharge. Mucous membranes pink and moist. NECK: Trachea midline. No JVD. CARDIOVASCULAR: Regular rate and rhythm. RESPIRATORY: No accessory muscle use. Clear to auscultation. Breath sounds equal bilaterally. GASTROINTESTINAL: Abdomen soft, non-tender, nondistended. Hepatic and splenic margins not palpable. MUSCULOSKELETAL: Extremities without clubbing, cyanosis, or edema. No obvious deformities. NEUROLOGICAL: Awake and alert. No obvious cranial nerve deficits. Motor grossly within normal limits. Five out of 5 muscle strength in the arms and legs. Normal speech. PSYCHIATRIC: Appropriate mood and affect; insight and judgment normal. Data Data Last Documented VS Vital Signs Date Time Temp Pulse Resp B/P (MAP) Pulse Ox O2 Delivery O2 Flow Rate FiO2 11/23/17 12:16 98.4 77 16 113/56 (75) 99 Orders Orders Amoxicil-Clavulanate (Augmentin) (11/23/17 13:00) [facility] Medical Decision Making Medical Screen Exam Complete: Yes Emergency Medical Condition: Yes Differential Diagnosis Breast tenderness. Mastitis. Cellulitis Narrative Course Patient is medically stable time exam. Patient is given Augmentin 875 mg p.o. now. Patient will be continued on Augmentin 875 twice daily for 10 days. Patient is to use hot compresses and hot showers to the area as discussed. Patient to take Tylenol as needed for pain as well. Patient should wear loose comfortable sports bra for support. Patient to follow-up with her OB next week to ensure improvement. Patient can return with worsening symptoms if necessary Diagnosis Primary Impression: Mastitis during Referrals: Spa Supervisor Patient Instructions: General Instructions, Mastitis (ED) Additional Instructions: Patient is given Augmentin 875 mg p.o. now. Patient will be continued on Augmentin 875 twice daily for 10 days. Patient is to use hot compresses and hot showers to the area as discussed. Patient to take Tylenol as needed for pain as well. Patient should wear loose comfortable sports bra for support. Patient to follow-up with her OB next week to ensure improvement. Patient can return with worsening symptoms if necessary Med/Other Pt SpecificInfo: Prescription(s) given Disposition: 01 DISCHARGE HOME Condition: Stable Otis Dominguez Nov 23, 2017 13:24
[2017-11-23] MEDS ORDERED: AUGM875T3 PO (13:25)
== END 2017-11-23 13:37 | disposition home or self-care (01) ==
LOC: NEPD 12:13
DX: O91.212 Nonpurulent mastitis associated with pregnancy, second trimester (principal); O99.332 Smoking (tobacco) complicating pregnancy, second trimester; Z3A.14 14 weeks gestation of pregnancy
CPT/HCPCS: 99283

== ENCOUNTER → 2017-12-24 | Outpatient (CLI) | payer OTHER ==
[~2017-12-24] MED LIST changes: +AUGM875T3 PO; -MACR100C2 PO; +PREN29TA PO; -ZOFR4TAB3 SL
== END ==
LOC: HPND 14:21
PROVIDERS: ATTEND Obstetrics & Gynecology
DX: O98.519 Other viral diseases complicating pregnancy, unspecified trimester (principal); Z36.3 Encounter for antenatal screening for malformations
CPT/HCPCS: 76811

== ENCOUNTER 2018-05-17 23:29 | Inpatient (IN) ==
--- NOTE | 2018-05-17 23:41 | P.HPOB ---
History of Present Illness Primary Care Physician: Robbie Esparza MD Chief Complaint: presents for IOL History of Present Illness: Patient is a 33 yo who presents at 39 weeks for IOL. Patient has PIH. Pt was seen on [facility] here on 05/14/2018 for evaluation of elevated BP over the preceding week. Decision was made to schedule IOL. care with [facility]. EDC 05-25-2018. LMP was 08/04/2017 complicated by h/o chronic Hep C. She denies any headache, vision changes of RUQ pain. She reports active movements. GBS screen is NEGATIVE. Patient states she quit smoking when she discovered . She has h/o IV drug use. Weeks Gestation:: 39 Para: 0 : 2 Total # of Abortions (Spontaneous & Elective): 1 - Inpatient Certification I certify that the inpatient services were ordered in accordance with Medicare regulations governing the order. This includes certification that hospital inpatient services are reasonable and necessary and in the case of services not specified as inpatient-only under 42 CFR 419.22(n), that they are appropriately provided as inpatient services in accordance to with the 2-midnight benchmark under 43 CFR 412.3(e) Estimated Total Length of Stay (Days): 3 Plans for Post Hospital Care: Home Review of Systems All other systems reviewed negative except as stated in HPI PMFSH - History History Provided By: Patient - Medical History Medical History: Medical History (Last Updated 05/05/18 @ 02:50 by Sarah Montalvo MD) Hepatitis C virus History of intravenous drug abuse - Social History I have reviewed the patient's Social History: Yes - Tobacco History Smoking Status: Former smoker - Alcohol History How Often Do You Have a Drink Containing Alcohol: Never - Substance Use History Substance History: Past History - Travel History History of Recent Travel: No Medications and Allergies Allergies Allergy/AdvReac Type Severity Reaction Status Date / Time No Known Allergies Allergy Verified 05/14/18 21:49 Home Medications Medication Instructions Recorded Confirmed Type PNV cmb#95-ferrous fumarate-FA 1 tab PO DAILY 03/30/18 05/17/18 History [] Exam Narrative: GENERAL: Well-nourished, well-developed patient. SKIN: Warm and dry. HEAD: Normocephalic and atraumatic. EYES: No scleral icterus. No injection or drainage. ENT: No nasal drainage noted. Mucous membranes pink. Airway patent. NECK: Supple, trachea midline. No JVD. CARDIOVASCULAR: Regular rate and rhythm without murmurs, gallops, or rubs. RESPIRATORY: Breath sounds equal bilaterally. No accessory muscle use. BREASTS: Bilateral exam showed no masses , no retractions, no nipple discharge. ABDOMEN/GI: Abdomen soft, non-tender, bowel sounds present, no rebound, no guarding Gravid to [38] weeks size Fundal Height: [-] GENITOURINARY: External Genitalia: intact and normal in appearance BUS glands: [wnl] Cervix: [soft] Dilatation: [closed] Effacement: [50%] Station: [-3] Presentation: [vertex] Membranes: [intact ] Uterine Contractions: [none] FHT's: Category: [1] Baseline: [140s] Reactive: [-] Variability: [moderate] Decels: [none] EXTREMITIES: No cyanosis or edema. BACK: Nontender without obvious deformity. No CVA tenderness. NEUROLOGICAL: Awake and alert. Motor and sensory grossly within normal limits. Five out of 5 muscle strength in all muscle groups. Normal speech. - Constitutional no acute distress - Routine HEENT Exam Head: Present: normocephalic Results - Labs CBC & Chem 7: 05/18/18 00:40 05/18/18 00:40 Caprini VTE Risk Assessment Caprini VTE Risk Assessment: No/Low Risk (score <= 1) VTE Pharmacological Exception Reason: High risk for bleeding Caprini Risk Assessment Model: Point Value = 1 Point Value = 2 Point Value = 3 Point Value = 5 Age 41-60 Minor surgery BMI > 25 kg/m2 Swollen legs Varicose veins or History of unexplained or recurrent spontaneous Oral contraceptives or hormone replacement Sepsis (< 1 month) Serious lung disease, including pneumonia (< 1 month) Abnormal pulmonary function Acute myocardial infarction Congestive heart failure (< 1 month) History of inflammatory bowel disease Medical patient at bed rest Age 61-74 Arthroscopic surgery Major open surgery (> 45 min) Laparoscopic surgery (> 45 min) Malignancy Confined to bed (> 72 hours) Immobilizing plaster cast Central venous access Age >= 75 History of VTE Family history of VTE Factor V Leiden Prothrombin [id number] Lupus anticoagulant Anticardiolipin antibodies Elevated serum homocysteine Heparin-induced thrombocytopenia Other congenital or acquired thrombophilia Stroke (< 1 month) Elective arthroplasty Hip, pelvis, or leg fracture Acute spinal cord injury (< 1 month) Prophylaxis Regimen: Total Risk Factor Score Risk Level Prophylaxis Regimen 0-1 Low Early ambulation 2 Moderate Order ONE of the following: *Sequential Compression Device (SCD) *Heparin 5000 units SQ BID 3-4 Higher Order ONE of the following medications: *Heparin 5000 units SQ TID *Enoxaparin/Lovenox 40 mg SQ daily (WT < 150 kg, CrCl > 30 mL/min) *Enoxaparin/Lovenox 30 mg SQ daily (WT < 150 kg, CrCl > 10-29 mL/min) *Enoxaparin/Lovenox 30 mg SQ BID (WT < 150 kg, CrCl > 30 mL/min) AND/OR *Sequential Compression Device (SCD) 5 or more Highest Order ONE of the following medications: *Heparin 5000 units SQ TID (Preferred with Epidurals) *Enoxaparin/Lovenox 40 mg SQ daily (WT < 150 kg, CrCl > 30 mL/min) *Enoxaparin/Lovenox 30 mg SQ daily (WT < 150 kg, CrCl > 10-29 mL/min) *Enoxaparin/Lovenox 30 mg SQ BID (WT < 150 kg, CrCl > 30 mL/min) AND *Sequential Compression Device (SCD) Assessment and Plan - Diagnosis (1) with 39 completed weeks gestation Code(s): Z3A.39 - 39 weeks gestation of Status: Acute (2) Elevated blood pressure affecting in third trimester, antepartum Code(s): O16.3 - Unspecified maternal hypertension, third trimester Status: Acute Plan: Admitted for scheduled IOL for elevated BP at term. BP today 150/90. Unfavorable cervix. plan for Cervidil IOL.
[2018-05-17] MEDS ORDERED: fentaNYL Citrate Inj 100 MCG/2 ML Ampul IV.PUSH PRN ×2 (23:44)
[2018-05-17] MEDS ORDERED: Naloxone Inj 0.4 MG/ML Vial IV.PUSH PRN (23:44)
[2018-05-17] MEDS ORDERED: Oxytocin 30 Units/500ml Premix 30 UNITS/500 ML BAG IV.SIG ONE (23:44)
[2018-05-17] MEDS ORDERED: Sodium Chlor 0.9% Inj 500 ML IV.SIG PRN (23:44)
[2018-05-17] MEDS ORDERED: Sod Chloride 0.9% Inj 1,000 ML IV.CONT PRN (23:44)
[2018-05-17] MEDS ORDERED: Citric Acid/Sodium Citrate Liq 30 ML UDC PO SCH (23:45)
[2018-05-17] MEDS ORDERED: Sodium Chloride 0.9% 2 ML Flush PRN IV.FLUSH (23:56)
[2018-05-18 00:59] LABS: Baso # (Auto) 0.1 th/mm3 (0.0-0.2); Baso % (Auto) 0.5 % (0.0-2.0); Eos % (Auto) 0.3 % (0.0-4.0); Hematocrit 31.9 % (35.0-46.0); Lymph # (Auto) 1.7 th/mm3 (1.0-4.8); Lymph % (Auto) 17.5 % (9.0-44.0); Mean Corpuscular HGB Conc 34.6 % (32.0-36.0); Mean Corpuscular Hemoglobin 29.8 pg (27.0-34.0); Mean Corpuscular Volume 86.2 fL (80.0-100.0); Mean Platelet Volume 9.7 fL (7.0-11.0); Mono # (Auto) 0.7 th/mm3 (0.0-0.9); Mono % (Auto) 7.4 % (0.0-8.0); Neut # (Auto) 7.2 th/mm3 (1.8-7.7); Neut % (Auto) 74.3 % (16.0-70.0); Platelet Count 228 th/mm3 (150-450); Red Cell Distribution Width 13.5 % (11.6-17.2); White Blood Count 9.7 th/mm3 (4.0-11.0)
[2018-05-18 01:02] LABS: Amphetamine Urine With Conf Neg (Neg); Benzodiazepine Urine With Conf Neg (Neg)
[2018-05-18 01:08] LABS: Bacteria,Urine Occasional /hpf; Bilirubin,Urine Negative (Negative); Clarity,Urine Hazy (Clear); Color,Urine Yellow (Yellw/Straw); Glucose,Urine (UA) Negative (Negative); Leukocyte Esterase,Urine Negative (Negative); Mucus,Urine Few /lpf (Occasional); Nitrite,Urine Negative (Negative); Specific Gravity,Urine 1.024 (1.002-1.035); Squamous Epithelial Cell,Urine 7 /hpf (0-5)
[2018-05-18 01:21] LABS: Alanine Aminotransferase 14 U/L (10-53); Albumin 2.5 g/dL (3.4-5.0); Anion Gap 9 meq/L (5-15); Aspartate Aminotransferase 11 U/L (15-37); Blood Urea Nitrogen 18 mg/dL (7-18); Calcium 8.3 mg/dL (8.5-10.1); Chloride 106 meq/L (98-107); Glomerular Filtration Rate 87 mL/min (>89); Glucose,Random 80 mg/dL (74-106); Sodium 136 meq/L (136-145); Uric Acid 5.4 mg/dl (2.6-6.0)
[2018-05-18 01:23] LABS: Alkaline Phosphatase 95 U/L (45-117); Total Protein 6.8 g/dL (6.4-8.2)
[2018-05-18] MEDS ORDERED: Sodium Chloride 0.9% 2 ML Flush BID IV.FLUSH SCH (09:00)
[2018-05-18] MEDS ORDERED: Oxytocin 30 Units/500ml Premix 30 UNITS/500 ML BAG IV.CONT PRN (09:03)
[2018-05-18] MEDS ORDERED: Acetaminophen 325 MG Tablet PO PRN (09:03)
[2018-05-18] MEDS ORDERED: Witch Hazel 50%/Glyderin 12.5% 40 Pad Jar RECTAL PRN (09:03)
[2018-05-18] MEDS ORDERED: Benzocaine 20% Top Spray 60 ML Can TOPICAL PRN (09:03)
[2018-05-18] MEDS ORDERED: Naloxone Inj 0.4 MG/ML Vial IV.PUSH PRN ×2 (09:03→09:33)
--- NOTE | 2018-05-18 09:08 | P.OBLABOR ---
Subjective Interval history: Ms Dale is a 33yof at 39/0 here for induction of labor. Seen this morning. Patient resting comfortably, no concerns. Objective Vital Signs: Vital Signs - 8 hr 05/18/18 01:05 05/18/18 01:15 05/18/18 01:55 Temperature Pulse Rate 70 64 69 Respiratory Rate Blood Pressure 05/18/18 01:59 05/18/18 02:15 05/18/18 02:30 Temperature Pulse Rate 62 64 68 Respiratory Rate Blood Pressure 140/75 05/18/18 02:40 05/18/18 02:45 05/18/18 02:55 Temperature Pulse Rate 64 65 60 Respiratory Rate 18 Blood Pressure 137/73 05/18/18 03:59 05/18/18 04:00 05/18/18 04:25 Temperature 97.9 F Pulse Rate 64 58 L Respiratory Rate Blood Pressure 05/18/18 04:30 05/18/18 04:45 05/18/18 05:15 Temperature Pulse Rate 67 57 L 51 L Respiratory Rate Blood Pressure 05/18/18 05:20 05/18/18 05:30 05/18/18 05:55 Temperature Pulse Rate 57 L 57 L 62 Respiratory Rate Blood Pressure 05/18/18 06:00 05/18/18 06:45 05/18/18 06:55 Temperature Pulse Rate 56 L 60 67 Respiratory Rate 18 Blood Pressure 136/78 05/18/18 07:25 05/18/18 07:55 Temperature Pulse Rate 65 53 L Respiratory Rate Blood Pressure Objective: Uterine Contractions: q 5-7 minutes FHT's: Category: 1 Baseline: 135 Reactive: yes Variability: Moderate Decels: Absent Assessment and Plan - Plan 33yof at 39/0 for induction of labor. Continue expectant management.
[2018-05-18] MEDS ORDERED: Sod Chloride 0.9% Inj 1,000 ML IV.CONT PRN (09:33)
[2018-05-18] MEDS ORDERED: fentaNYL Citrate Inj 100 MCG/2 ML Ampul IV.PUSH PRN (09:33)
[2018-05-18] MEDS ORDERED: Oxytocin 30 Units/500ml Premix 30 UNITS/500 ML BAG IV.SIG ONE (09:33)
[2018-05-18] MEDS ORDERED: Sodium Chlor 0.9% Inj 500 ML IV.SIG PRN (09:33)
[2018-05-18] MEDS ORDERED: Citric Acid/Sodium Citrate Liq 30 ML UDC PO SCH (09:45)
[2018-05-18 14:59] LABS: Protein/Creatinine Ratio,Urine 0.32 (0.00-0.14)
[2018-05-18] MEDS ORDERED: Diphtheria/Tetanus/Pertussis Vaccine Inj 0.5 ML Syringe IM ONE (16:00)
[2018-05-18] MEDS ORDERED: Measles/Mumps/Rubella Vaccine Inj 0.5 ML Vial SQ ONE (16:00)
[2018-05-18] MEDS ORDERED: Zolpidem Tartrate 5 MG Tablet PO PRN (21:00)
[2018-05-18] MEDS ORDERED: Senna/Docusate Sodium 8.6/50 MG Tablet PO SCH (21:00)
[2018-05-18] MEDS: fentaNYL Citrate Inj 100 MCG/2 ML Ampul IV.PUSH PRN ×2 (21:49→23:54)
--- NOTE | 2018-05-18 22:40 | P.OBLABOR ---
Subjective Interval history: Patient is a 33 year old at 39 weeks admitted for induction of labor. Patient experiencing mild, occasional contractions. Objective Vital Signs: Vital Signs - 8 hr 05/18/18 14:55 05/18/18 15:25 05/18/18 16:28 Temperature 98.2 F Pulse Rate 65 64 69 Respiratory Rate 16 Blood Pressure 146/82 H 05/18/18 16:55 05/18/18 17:25 05/18/18 17:55 Temperature Pulse Rate 66 69 64 Respiratory Rate Blood Pressure 145/88 H 160/89 H 05/18/18 18:30 05/18/18 18:37 05/18/18 18:55 Temperature Pulse Rate 69 73 Respiratory Rate 18 Blood Pressure 160/88 H 160/88 H 05/18/18 19:23 05/18/18 20:00 05/18/18 20:25 Temperature Pulse Rate 59 L 70 79 Respiratory Rate Blood Pressure 130/69 05/18/18 20:45 05/18/18 21:05 05/18/18 21:10 Temperature Pulse Rate 68 66 68 Respiratory Rate Blood Pressure 05/18/18 21:20 05/18/18 21:35 05/18/18 21:40 Temperature 99.0 F Pulse Rate 70 69 67 Respiratory Rate Blood Pressure 05/18/18 21:44 05/18/18 21:52 05/18/18 21:55 Temperature Pulse Rate 76 71 Respiratory Rate 22 Blood Pressure 166/93 H 05/18/18 22:15 Temperature Pulse Rate 81 Respiratory Rate Blood Pressure Objective: Pelvic Exam: Dilatation: 1 cm Effacement: 80 Station: -2 Presentation: vertex Membranes: ruptured Uterine Contractions: occasional FHT's: Category: 1 Baseline: 130 Reactive: + Variability: moderate Decels: none Weeks Gestation: 39 Medical Induction of Labor: Yes Artificial Rupture of Membrane: No Assessment and Plan - Plan Patient is a 33 year old at 39 weeks admitted for induction of labor. Cytotec placed at 19:30. Continue expectant management. - Attending Attestation The exam, history, and the medical decision-making described in the above note were completed with the assistance of the resident physician. I reviewed and agree with the findings presented. I attest that I had a [id number] encounter with the patient on the same day, and personally performed and documented my assessment and findings in the medical record.
[2018-05-19] MEDS ORDERED: fentaNYL 2MCG-Bupiv 0.125% Epi 150 ML EPIDURAL ONE (00:41)
[2018-05-19] MEDS ORDERED: Lidocaine PF 1% Inj 5 ML Vial ONE (00:48)
[2018-05-19] MEDS ORDERED: Lidocaaine 1.5%/Epinephrine 1:200,000 PF Inj 5 ML Amp ONE (00:48)
[2018-05-19] MEDS ORDERED: Oxytocin 30 Units/500ml Premix 30 UNITS/500 ML BAG IV.SIG PRN (01:55)
[2018-05-19] MEDS ORDERED: Mag Sulf/Water 4 gm/100 ml 100 ML IV.SIG ONE (01:56)
--- NOTE | 2018-05-19 02:00 | P.OBGPN ---
Labor progress note Patient is comfortable with epidural. No BELL or visual changes. 158/88, CAT 1 FHR 2+, SROM, IUPC in-inadequate ctxs A: IOL for GHTN, progressing P: Pit augment Cont prn BP treatment (has had 2 doses of procardia) Initiate Mag
[2018-05-19] MEDS: Mag Sulf/Water 40 gm/1000 ml 40 GM/1,000 ML BAG IV.CONT SCH ×2 (02:31→22:35)
[2018-05-19] MEDS ORDERED: fentaNYL Citrate Inj 100 MCG/2 ML Ampul EPIDURAL ONE (03:19)
[2018-05-19] MEDS: Acetaminophen 325 MG Tablet PO PRN (06:01)
[2018-05-19] MEDS: fentaNYL 2MCG-Bupiv 0.125% Epi 150 ML EPIDURAL PRN ×2 (06:02→11:18)
[2018-05-19] MEDS ORDERED: Labetalol HCl Inj 100 MG/20 ML Vial IV.PUSH ONE ×2 (06:57→22:00)
--- NOTE | 2018-05-19 07:16 | P.OBGPN ---
Labor progress note Patient is complaining of headache and nausea since starting the Mg. Blood pressure 164/98,--20 mg of IV labetalol ordered Pitocin at 8 milliunits, moderate contractions every 4 minutes Category 1 heart rate Assessment: Induction of labor for gestational hypertension with severe range blood pressures intermittently Plan: Continue Pitocin and mag sulfate. IV labetalol 20 mg for blood pressure. Tylenol 1 g IV
--- NOTE | 2018-05-19 11:24 | P.OBLABOR ---
Subjective Interval history: Patient is still having significant nausea and vomiting. Epidural in place. Feels significant pressure during contractions. Objective Vital Signs: Vital Signs - 8 hr 05/19/18 03:27 05/19/18 03:30 05/19/18 03:35 Temperature Pulse Rate 90 87 82 Respiratory Rate 17 Blood Pressure 140/87 05/19/18 03:50 05/19/18 03:55 05/19/18 04:00 Temperature Pulse Rate 79 77 75 Respiratory Rate 17 Blood Pressure 133/86 130/87 05/19/18 04:10 05/19/18 04:15 05/19/18 04:25 Temperature Pulse Rate 76 74 79 Respiratory Rate Blood Pressure 136/67 05/19/18 04:30 05/19/18 04:45 05/19/18 04:50 Temperature Pulse Rate 77 72 84 Respiratory Rate Blood Pressure 125/62 136/75 05/19/18 04:55 05/19/18 05:00 05/19/18 05:05 Temperature 97.9 F Pulse Rate 80 76 Respiratory Rate Blood Pressure 139/70 05/19/18 05:10 05/19/18 05:15 05/19/18 05:20 Temperature Pulse Rate 125 H 107 H 106 H Respiratory Rate Blood Pressure 154/96 H 05/19/18 05:25 05/19/18 05:30 05/19/18 05:45 Temperature Pulse Rate 98 H 102 H 92 H Respiratory Rate Blood Pressure 157/88 H 155/99 H 05/19/18 05:50 05/19/18 06:05 05/19/18 06:10 Temperature Pulse Rate 83 83 119 H Respiratory Rate Blood Pressure 151/97 H 05/19/18 06:15 05/19/18 06:25 05/19/18 06:30 Temperature Pulse Rate 96 H 93 H 92 H Respiratory Rate Blood Pressure 155/95 H 158/94 H 05/19/18 06:35 05/19/18 06:40 05/19/18 06:45 Temperature Pulse Rate 95 H 93 H 89 Respiratory Rate Blood Pressure 167/101 H 05/19/18 06:55 05/19/18 07:00 05/19/18 07:25 Temperature 98.0 F Pulse Rate 89 86 Respiratory Rate 18 Blood Pressure 161/100 H 05/19/18 07:40 05/19/18 08:10 05/19/18 08:25 Temperature Pulse Rate 82 83 82 Respiratory Rate Blood Pressure 159/96 H 140/84 05/19/18 08:40 05/19/18 08:45 05/19/18 08:55 Temperature Pulse Rate 92 H 80 72 Respiratory Rate Blood Pressure 129/68 125/72 05/19/18 09:30 05/19/18 09:40 05/19/18 09:50 Temperature Pulse Rate 71 86 Respiratory Rate 18 Blood Pressure 115/63 05/19/18 09:55 05/19/18 10:15 05/19/18 10:18 Temperature 97.9 F Pulse Rate 84 83 Respiratory Rate Blood Pressure 138/85 138/91 H 05/19/18 10:20 05/19/18 10:40 05/19/18 11:00 Temperature Pulse Rate 74 71 Respiratory Rate 20 Blood Pressure 137/86 126/86 Objective: Last exam at 09 Pelvic Exam: Dilatation: 4 Effacement: 80 Station: 0 Presentation: vertex Membranes: ruptured Uterine Contractions: q5 hours FHT's: Category: 2 Baseline: 115 Reactive: yes Variability: moderate Decels: mild intermittent variables Patient Started Active Labor: No Medical Induction of Labor: Yes Assessment and Plan - Plan Patient is a 33 year old at 39 weeks admitted for induction of labor. -Has been hypertensive, currently in the 150s over 90s -Currently receiving magnesium sulfate -Very mild, intermittent variable decelerations -Tylenol as needed headache -Zofran PRN nausea -Pitocin currently at 14, continue 07/29/29 protocol
[2018-05-19] MEDS ORDERED: Morphine Inj 4 MG/ML Vial ONE (13:01)
[2018-05-19] MEDS ORDERED: Morphine Inj 4 MG/ML Vial IV.PUSH ONE (14:30)
[2018-05-19] MEDS ORDERED: Measles/Mumps/Rubella Vaccine Inj 0.5 ML Vial SQ ONE (16:00)
[2018-05-19] MEDS ORDERED: Diphtheria/Tetanus/Pertussis Vaccine Inj 0.5 ML Syringe IM ONE (16:00)
[2018-05-19] MEDS ORDERED: Lidocaine 1% Inj 50 ML Vial ONE (20:43)
[2018-05-19] MEDS ORDERED: Naloxone Inj 0.4 MG/ML Vial IV.PUSH PRN (23:23)
[2018-05-19] MEDS ORDERED: Zolpidem Tartrate 5 MG Tablet PO PRN (23:23)
[2018-05-19] MEDS ORDERED: Acetaminophen 325 MG Tablet PO PRN (23:23)
[2018-05-19] MEDS ORDERED: Oxytocin 30 Units/500ml Premix 30 UNITS/500 ML BAG IV.CONT PRN (23:23)
[2018-05-19] MEDS ORDERED: Bisacodyl 10 MG Supp RECTAL PRN (23:23)
[2018-05-19] MEDS ORDERED: Witch Hazel 50%/Glyderin 12.5% 40 Pad Jar RECTAL PRN (23:23)
[2018-05-19] MEDS ORDERED: Benzocaine 20% Top Spray 60 ML Can TOPICAL PRN (23:23)
--- NOTE | 2018-05-19 23:23 | P.OBDELI ---
Weeks Gestation: 39 Medical Induction of Labor: Yes (PIH) Anesthesia: Epidural Episiotomy: none Vaginal Delivery: Normal Presentation: Occiput anterior Nuchal Cord: None Delayed Cord Clamping (45 sec): Yes Placenta: Spontaneous delivery, Other (thin cord , small placenta) Laceration: Vaginal Repair: Vicryl running Estimated blood loss (mL): 300 : Female Female A Delivery Date: 05/19/18 Delivery Time: 22:50 Weight: 2.45 kg score (1 min): 8 score (5 min): 9
[2018-05-19] MEDS ORDERED: Mag Sulf/Water 40 gm/1000 ml 40 GM/1,000 ML BAG IV.CONT SCH (23:25)
[2018-05-20] MEDS ORDERED: Labetalol HCl Inj 100 MG/20 ML Vial IV.PUSH ONE ×2 (01:15→09:00)
[2018-05-20] MEDS: Senna/Docusate Sodium 8.6/50 MG Tablet PO SCH ×3 (07:50→20:51)
--- NOTE | 2018-05-20 07:50 | P.PNOB ---
Subjective Post day: 1 Interval history: Patient seen and examined bedside this morning. Patient has been on magnesium. Patient has been on clear liquids and tolerating them well. She has not been ambulating. Catheter is still in place. Denies any chest pain/shortness of breath/dizziness. Reflexes intact. No calf tenderness. Objective Vital Signs/I&O: Vital Signs 05/19/18 08:10 05/19/18 08:25 05/19/18 08:40 Temperature Pulse Rate 83 82 92 H Respiratory Rate Blood Pressure 140/84 129/68 05/19/18 08:45 05/19/18 08:55 05/19/18 09:30 Temperature Pulse Rate 80 72 Respiratory Rate 18 Blood Pressure 125/72 05/19/18 09:40 05/19/18 09:50 05/19/18 09:55 Temperature Pulse Rate 71 86 84 Respiratory Rate Blood Pressure 115/63 138/85 05/19/18 10:15 05/19/18 10:18 05/19/18 10:20 Temperature 97.9 F Pulse Rate 83 Respiratory Rate 20 Blood Pressure 138/91 H 05/19/18 10:40 05/19/18 11:00 05/19/18 11:15 Temperature 97.8 F Pulse Rate 74 71 76 Respiratory Rate 18 Blood Pressure 137/86 126/86 05/19/18 11:25 05/19/18 11:30 05/19/18 11:40 Temperature Pulse Rate 73 83 Respiratory Rate 18 Blood Pressure 107/82 138/92 H 05/19/18 11:59 05/19/18 12:05 05/19/18 12:10 Temperature Pulse Rate 72 69 71 Respiratory Rate 18 Blood Pressure 139/87 128/83 05/19/18 12:25 05/19/18 12:40 05/19/18 12:55 Temperature Pulse Rate 75 67 94 H Respiratory Rate Blood Pressure 138/83 138/89 127/93 H 05/19/18 13:00 05/19/18 13:15 05/19/18 13:25 Temperature Pulse Rate 91 H 84 77 Respiratory Rate Blood Pressure 142/89 H 146/91 H 05/19/18 13:29 05/19/18 13:35 05/19/18 13:50 Temperature 97.3 F L Pulse Rate 71 69 Respiratory Rate Blood Pressure 125/70 120/70 05/19/18 13:55 05/19/18 14:25 05/19/18 14:30 Temperature Pulse Rate 78 72 68 Respiratory Rate Blood Pressure 123/69 116/66 05/19/18 14:40 05/19/18 14:55 05/19/18 15:10 Temperature Pulse Rate 67 69 65 Respiratory Rate Blood Pressure 115/65 126/72 05/19/18 15:15 05/19/18 15:25 05/19/18 15:45 Temperature 97.3 F L Pulse Rate 75 72 65 Respiratory Rate Blood Pressure 126/71 121/74 05/19/18 15:55 05/19/18 16:10 05/19/18 16:35 Temperature Pulse Rate 81 72 75 Respiratory Rate Blood Pressure 134/88 129/84 05/19/18 16:40 05/19/18 16:50 05/19/18 16:55 Temperature Pulse Rate 74 74 70 Respiratory Rate Blood Pressure 127/80 05/19/18 17:10 05/19/18 17:40 05/19/18 17:55 Temperature 97.6 F Pulse Rate 79 75 71 Respiratory Rate 16 Blood Pressure 132/83 131/84 125/65 05/19/18 18:00 05/19/18 18:30 05/19/18 18:35 Temperature Pulse Rate 75 74 77 Respiratory Rate Blood Pressure 128/76 127/68 05/19/18 18:40 05/19/18 18:43 05/19/18 19:00 Temperature Pulse Rate 72 74 Respiratory Rate 18 Blood Pressure 136/77 05/19/18 19:10 05/19/18 19:15 05/19/18 19:19 Temperature Pulse Rate 89 74 Respiratory Rate 18 18 Blood Pressure 148/88 H 05/19/18 19:30 05/19/18 19:40 05/19/18 19:45 Temperature Pulse Rate 79 82 72 Respiratory Rate Blood Pressure 134/76 127/72 05/19/18 19:50 05/19/18 19:55 05/19/18 20:00 Temperature 98.3 F Pulse Rate 74 79 87 Respiratory Rate 18 Blood Pressure 146/90 H 05/19/18 20:10 05/19/18 20:40 05/19/18 20:45 Temperature Pulse Rate 84 76 82 Respiratory Rate 18 Blood Pressure 147/79 H 159/93 H 05/19/18 20:55 05/19/18 20:57 05/19/18 21:00 Temperature Pulse Rate 79 79 73 Respiratory Rate Blood Pressure 146/77 H 138/70 05/19/18 21:05 05/19/18 21:15 05/19/18 21:20 Temperature Pulse Rate 85 91 H 83 Respiratory Rate Blood Pressure 149/76 H 05/19/18 21:25 05/19/18 21:30 05/19/18 21:35 Temperature Pulse Rate 83 95 H 98 H Respiratory Rate Blood Pressure 162/87 H 05/19/18 21:40 05/19/18 21:50 05/19/18 21:55 Temperature Pulse Rate 95 H 91 H Respiratory Rate 16 Blood Pressure 164/127 H 147/80 H 05/19/18 22:25 05/19/18 23:01 05/19/18 23:17 Temperature 98.7 F Pulse Rate 93 H 132 H 103 H Respiratory Rate 18 Blood Pressure 168/98 H 135/97 H 05/19/18 23:34 05/19/18 23:35 05/19/18 23:50 Temperature Pulse Rate 90 91 H Respiratory Rate 18 18 Blood Pressure 161/108 H 170/91 H 05/20/18 00:01 05/20/18 00:05 05/20/18 00:14 Temperature Pulse Rate 79 76 Respiratory Rate 18 Blood Pressure 175/99 H 170/93 H 05/20/18 00:15 05/20/18 00:18 05/20/18 00:31 Temperature Pulse Rate 76 76 Respiratory Rate 18 Blood Pressure 167/90 H 143/86 H 05/20/18 01:00 05/20/18 01:30 05/20/18 02:00 Temperature 98.4 F Pulse Rate 82 78 80 Respiratory Rate 18 Blood Pressure 155/92 H 152/86 H 139/84 05/20/18 02:30 05/20/18 03:00 05/20/18 03:30 Temperature Pulse Rate 71 Respiratory Rate 18 18 Blood Pressure 144/83 H 05/20/18 04:01 05/20/18 04:09 05/20/18 05:04 Temperature Pulse Rate 84 72 Respiratory Rate 18 16 Blood Pressure 120/64 115/62 05/20/18 06:17 05/20/18 07:00 05/20/18 07:09 Temperature Pulse Rate 74 72 Respiratory Rate 18 17 Blood Pressure 128/74 133/71 Intake & Output 05/19/18 05/20/18 05/20/18 18:59 06:59 18:59 Intake Total 2500 / 2500 Balance 2500 / 2500 Intake: IV 2500 / 2500 LR 1000 mL Inj 1,000 ML @ 75 1000 / 1000 mls/hr IV.CONT .[id number] [facility] [place] Rx# :[id number] Magnesium Sulfate/Water 40 gm/ 1000 / 1000 1000 ml Premix 40 gm In 1,000 ml @ 2 GM/HR 50 mls/hr IV.CONT Q24H [facility] [place] Rx#:[id number] Pitocin 30 Units/NS 500 ml 500 / 500 Premix 30 units In 500 ml @ 1 MILLIUNIT/MIN 1 mls/hr IV.SIG TITRATE PRN Rx#:[id number] Result Diagrams: 05/18/18 00:40 05/18/18 00:40 Objective Remarks: GENERAL: Well-nourished, well-developed patient. CARDIOVASCULAR: Regular rate and rhythm without murmurs, gallops, or rubs. RESPIRATORY: Breath sounds equal bilaterally. No accessory muscle use. ABDOMEN/GI: Abdomen soft, non-tender. Fundus: Firm, non-tender at umbilicus. GENITOURINARY: Light to moderate bleeding. EXTREMITIES: No cyanosis or edema, non-tender, without signs of DVT. Neuro: Reflexes intact Medications and IVs: Active Medications Acetaminophen (Tylenol) 650 mg PO Q4H PRN PRN Reason: HEADACHE Last Admin: 05/19/18 06:01 Dose: 650 mg Acetaminophen (Tylenol) 650 mg PO Q4H PRN PRN Reason: PAIN SCALE 1 TO 2 Last Admin: 05/20/18 01:44 Dose: 650 mg Al Hydroxide/Mg Hydroxide (Milk Of Magnesia Liq) 30 ml PO Q12H PRN PRN Reason: Mild Constipation Benzocaine (Americaine 20% Top [place]) 1 spray TOPICAL Q4H PRN PRN Reason: For Perineum Discomfort Bisacodyl (Dulcolax Supp) 10 mg RECTAL DAILY PRN PRN Reason: SEVERE CONSITIPATION Calcium Gluconate (Calcium Gluconate Inj) 1 gm IV.PUSH PRN PRN PRN Reason: Magnesium toxicity Citric Acid/Sodium Citrate (Sodium Citrate/Citric Acid Liq) 30 ml PO [place] [facility] [place] Stop: 05/22/18 09:44 Fentanyl Citrate (Fentanyl Inj) 50 mcg IV.PUSH Q1H PRN PRN Reason: Pain Scale 3 - 5 Fentanyl Citrate (Fentanyl Inj) 100 mcg IV.PUSH Q1H PRN PRN Reason: PAIN SCALE 6 TO 10 Last Admin: 05/18/18 23:54 Dose: 100 mcg Sodium Chloride (Ns Inj) 500 mls @ 1,000 mls/hr IV.SIG UNSCH PRN PRN Reason: SEE LABEL COMMENTS Sodium Chloride (Ns Inj) 1,000 mls @ 100 mls/hr IV.CONT .Q10H PRN PRN Reason: SEE LABEL COMMENTS Lactated Ringer's (Lr 1000 Ml Inj) 1,000 mls @ 3,000 mls/hr IV.SIG UNSCH PRN PRN Reason: compromise or epidural Last Admin: 05/19/18 01:06 Dose: 3,000 mls/hr Oxytocin (Pitocin 30 Units/Ns 500 Ml Premix) 30 units in 500 mls @ 1 mls/hr IV.SIG TITRATE PRN; Protocol PRN Reason: For induction of labor Last Titration: 05/20/18 01:05 Dose: Infused Lactated Ringer's (Lr 1000 Ml Inj) 1,000 mls @ 75 mls/hr IV.CONT .[id number] [facility] [place] Last Admin: 05/20/18 06:35 Dose: Not Given Magnesium Sulfate (Magnesium Sulfate/Water 40 Gm/1000 Ml Premix) 40 gm in 1, 000 mls @ 50 mls/hr IV.CONT Q24H [facility] [place] Last Admin: 05/19/18 22:35 Dose: 2 gm/hr, 50 mls/hr Fentanyl/Bupivacaine/Sodium Chlor (Fentanyl 2 Mcg-Bupiv 0.125% Epi) 150 mls @ 12 mls/hr EPIDURAL PRN PRN PRN Reason: for Labor Pain Last Admin: 05/19/18 11:18 Dose: 12 mls/hr Oxytocin (Pitocin 30 Units/Ns 500 Ml Premix) 30 units in 500 mls @ 100 mls/hr IV.CONT UNSCH PRN PRN Reason: Heavy bleeding Last Admin: 05/20/18 00:09 Dose: 100 mls/hr Magnesium Sulfate (Magnesium Sulfate/Water 40 Gm/1000 Ml Premix) 40 gm in 1, 000 mls @ 25 mls/hr IV.CONT Q24H [facility] [place] Last Admin: 05/20/18 03:34 Dose: Not Given Ibuprofen (Motrin) 800 mg PO Q8H PRN PRN Reason: For Cramping Last Admin: 05/20/18 00:07 Dose: 800 mg Lactulose (Lactulose Liq) 30 ml PO DAILY PRN PRN Reason: SEVERE CONSITIPATION Lidocaine HCl (Xylocaine 1% Inj) 0.1 ml I-DERMAL PRN PRN PRN Reason: For IV start Stop: 05/21/18 09:32 Lidocaine HCl (Xylocaine 1% Inj) 10 ml INFILTRATN PRN PRN PRN Reason: For episiotomy repair Stop: 05/20/18 09:32 Mineral Oil (Muri-Lube Oil) 10 ml TOPICAL PRN PRN PRN Reason: PRN perineal massage Naloxone HCl (Narcan Inj) 0.1 mg IV.PUSH Q2M PRN PRN Reason: for opiate reversal Naloxone HCl (Narcan Inj) 0.1 mg IV.PUSH Q2M PRN PRN Reason: for opiate reversal Ondansetron HCl (Zofran Inj) 4 mg IV.PUSH Q6H PRN PRN Reason: NAUSEA Last Admin: 05/19/18 10:12 Dose: 4 mg Ondansetron HCl (Zofran Odt) 4 mg PO Q6H PRN PRN Reason: NAUSEA OR VOMITING Oxycodone/Acetaminophen (Percocet 5/325 Mg) 1 tab PO Q4H PRN PRN Reason: PAIN SCALE 3 TO 5 Senna/Docusate Sodium (Treva-Colace) 1 tab PO BID [facility] [place] Sennosides (Senokot) 17.2 mg PO Q12H PRN PRN Reason: Moderate Constipation Sodium Chloride (Ns Flush) 2 ml IV.FLUSH BID [facility] [place] Last Admin: 05/20/18 01:04 Dose: Not Given Sodium Chloride (Ns Flush) 2 ml IV.FLUSH PRN PRN PRN Reason: FLUSH AFTER USING IV ACCESS Sodium Chloride (Ns Flush) 2 ml IV.FLUSH BID [facility]ER Sodium Chloride (Ns Flush) 2 ml IV.FLUSH PRN PRN PRN Reason: FLUSH AFTER USING IV ACCESS Witch Melinda/Glycerin (Tucks Pads) 1 applicatio RECTAL QID PRN PRN Reason: HEMORRHOIDS Zolpidem Tartrate (Ambien) 5 mg PO HS PRN PRN Reason: SLEEP Assessment and Plan - Diagnosis (1) Vaginal delivery Code(s): O80 - Encounter for full-term uncomplicated delivery Status: Acute (2) Pre-eclampsia affecting childbirth Code(s): O14.94 - Unspecified pre-eclampsia, complicating childbirth Status: Acute - Plan day #1, patient delivered as a 33 year old at 39 weeks admitted for induction of labor. -Hypertensive, on magnesium before delivery -Currently receiving magnesium sulfate, will continue for 24 hours -Tylenol as needed headache -Zofran PRN nausea -Vital signs stable, continue regular care
[2018-05-20] MEDS: Acetaminophen 325 MG Tablet PO PRN ×2 (09:59→16:58)
[2018-05-20] MEDS: Labetalol 100 MG Tablet PO SCH ×2 (12:59→20:51)
[2018-05-20] MEDS: Mag Sulf/Water 40 gm/1000 ml 40 GM/1,000 ML BAG IV.CONT SCH (16:55)
[2018-05-21] MEDS: Labetalol 100 MG Tablet PO SCH (09:20)
[2018-05-21] MEDS: Senna/Docusate Sodium 8.6/50 MG Tablet PO SCH ×2 (09:21→22:38)
--- NOTE | 2018-05-21 10:35 | P.PNOB ---
Subjective Interval history: day #2. Decreased lochia. Denies dysuria. No breast pain. Appetite good. No nausea or vomiting. Ambulating well. Denies calf pain or shortness of breath. Otherwise, she is doing well this morning and has no other complaints. Objective Vital Signs/I&O: Vital Signs 05/20/18 11:00 05/20/18 11:30 05/20/18 12:00 Temperature Pulse Rate 76 80 Respiratory Rate 18 Blood Pressure 140/81 163/92 H 05/20/18 12:03 05/20/18 13:05 05/20/18 13:06 Temperature Pulse Rate 78 79 Respiratory Rate 17 Blood Pressure 150/85 H 165/91 H 05/20/18 13:13 05/20/18 13:47 05/20/18 14:00 Temperature Pulse Rate 80 85 85 Respiratory Rate Blood Pressure 167/86 H 166/85 H 138/74 05/20/18 14:30 05/20/18 15:00 05/20/18 16:00 Temperature Pulse Rate 73 76 Respiratory Rate 18 Blood Pressure 141/80 H 137/84 05/20/18 16:30 05/20/18 17:00 05/20/18 17:30 Temperature 98.2 F Pulse Rate 17 L 71 Respiratory Rate 17 18 Blood Pressure 140/82 05/20/18 18:00 05/20/18 18:30 05/20/18 19:00 Temperature Pulse Rate 74 Respiratory Rate 18 Blood Pressure 149/73 H 152/82 H 05/20/18 19:24 05/20/18 19:26 05/20/18 20:10 Temperature Pulse Rate 76 80 Respiratory Rate 17 Blood Pressure 163/85 H 153/82 H 05/20/18 20:53 05/20/18 20:57 05/20/18 20:59 Temperature 98.9 F Pulse Rate 77 77 Respiratory Rate 18 Blood Pressure 160/91 H 154/87 H 05/20/18 22:04 05/20/18 23:09 05/20/18 23:30 Temperature 98.1 F Pulse Rate 67 67 Respiratory Rate 16 18 18 Blood Pressure 145/74 H 148/92 H 05/21/18 04:30 05/21/18 07:30 Temperature 98.4 F 98.2 F Pulse Rate 72 77 Respiratory Rate 18 20 Blood Pressure 146/82 H 151/93 H Intake & Output 05/20/18 05/21/18 05/21/18 18:59 06:59 18:59 Intake Total 1999 Balance 1999 Intake: IV 1999 LR 1000 mL Inj 1,000 ML @ 75 1000 / 1000 mls/hr IV.CONT .[id number] [facility] Rx# :[id number] Magnesium Sulfate/Water 40 gm/ 1000 / 1000 1000 ml Premix 40 gm In 1,000 ml @ 2 GM/HR 50 mls/hr IV.CONT Q24H [facility] Rx#:[id number] Result Diagrams: 05/18/18 00:40 05/18/18 00:40 Objective Remarks: GENERAL: Well-nourished, well-developed patient. CARDIOVASCULAR: Regular rate and rhythm without murmurs, gallops, or rubs. RESPIRATORY: Breath sounds equal bilaterally. No accessory muscle use. ABDOMEN/GI: Abdomen soft, non-tender. Fundus: Firm, non-tender at umbilicus. GENITOURINARY: Light to moderate bleeding. EXTREMITIES: No cyanosis or edema, non-tender, without signs of DVT. Medications and IVs: Active Medications Acetaminophen (Tylenol) 650 mg PO Q4H PRN PRN Reason: HEADACHE Last Admin: 05/20/18 16:58 Dose: 650 mg Acetaminophen (Tylenol) 650 mg PO Q4H PRN PRN Reason: PAIN SCALE 1 TO 2 Last Admin: 05/20/18 01:44 Dose: 650 mg Al Hydroxide/Mg Hydroxide (Milk Of Magncristian Liq) 30 ml PO Q12H PRN PRN Reason: Mild Constipation Benzocaine (Americaine 20% Top [place]) 1 spray TOPICAL Q4H PRN PRN Reason: For Perineum Discomfort Last Admin: 05/21/18 02:16 Dose: 1 spray Bisacodyl (Dulcolax Supp) 10 mg RECTAL DAILY PRN PRN Reason: SEVERE CONSITIPATION Calcium Gluconate (Calcium Gluconate Inj) 1 gm IV.PUSH PRN PRN PRN Reason: Magnesium toxicity Oxytocin (Pitocin 30 Units/Ns 500 Ml Premix) 30 units in 500 mls @ 1 mls/hr IV.SIG TITRATE PRN; Protocol PRN Reason: For induction of labor Last Titration: 05/20/18 01:05 Dose: Infused Fentanyl/Bupivacaine/Sodium Chlor (Fentanyl 2 Mcg-Bupiv 0.125% Epi) 150 mls @ 12 mls/hr EPIDURAL PRN PRN PRN Reason: for Labor Pain Last Admin: 05/19/18 11:18 Dose: 12 mls/hr Oxytocin (Pitocin 30 Units/Ns 500 Ml Premix) 30 units in 500 mls @ 100 mls/hr IV.CONT UNSCH PRN PRN Reason: Heavy bleeding Last Admin: 05/20/18 00:09 Dose: 100 mls/hr Ibuprofen (Motrin) 800 mg PO Q8H PRN PRN Reason: For Cramping Last Admin: 05/21/18 07:52 Dose: 800 mg Labetalol HCl (Trandate) 200 mg PO BID [facility] Lactulose (Lactulose Liq) 30 ml PO DAILY PRN PRN Reason: SEVERE CONSITIPATION Naloxone HCl (Narcan Inj) 0.1 mg IV.PUSH Q2M PRN PRN Reason: for opiate reversal Ondansetron HCl (Zofran Inj) 4 mg IV.PUSH Q6H PRN PRN Reason: NAUSEA Last Admin: 05/19/18 10:12 Dose: 4 mg Ondansetron HCl (Zofran Odt) 4 mg PO Q6H PRN PRN Reason: NAUSEA OR VOMITING Oxycodone/Acetaminophen (Percocet 5/325 Mg) 1 tab PO Q4H PRN PRN Reason: PAIN SCALE 3 TO 5 Last Admin: 05/21/18 02:17 Dose: 1 tab Senna/Docusate Sodium (Treva-Colace) 1 tab PO BID [facility] Last Admin: 05/21/18 09:21 Dose: Not Given Sennosides (Senokot) 17.2 mg PO Q12H PRN PRN Reason: Moderate Constipation Sodium Chloride (Ns Flush) 2 ml IV.FLUSH BID [facility] Last Admin: 05/21/18 09:21 Dose: 2 ml Sodium Chloride (Ns Flush) 2 ml IV.FLUSH PRN PRN PRN Reason: FLUSH AFTER USING IV ACCESS Sodium Chloride (Ns Flush) 2 ml IV.FLUSH BID [facility] Last Admin: 05/21/18 10:08 Dose: Not Given Sodium Chloride (Ns Flush) 2 ml IV.FLUSH PRN PRN PRN Reason: FLUSH AFTER USING IV ACCESS Witch Melinda/Glycerin (Tucks Pads) 1 applicatio RECTAL QID PRN PRN Reason: HEMORRHOIDS Last Admin: 05/21/18 02:16 Dose: 1 applicatio Zolpidem Tartrate (Ambien) 5 mg PO HS PRN PRN Reason: SLEEP Assessment and Plan - Diagnosis (1) Vaginal delivery Code(s): O80 - Encounter for full-term uncomplicated delivery Status: Acute (2) Pre-eclampsia affecting childbirth Code(s): O14.94 - Unspecified pre-eclampsia, complicating childbirth Status: Acute - Plan day #2, patient delivered as a 33 year old at 39 weeks admitted for induction of labor. Hypertensive, on labetalol. -Hypertensive, on magnesium before delivery -Tylenol as needed headache -Zofran PRN nausea -Increase labetalol to 200 BID D/W Dr. Stokes
[2018-05-21] MEDS: FLUoxetine 20 MG Capsule PO SCH (15:48)
[2018-05-21] MEDS ORDERED: traZODone 50 MG Tablet PO SCH (21:00)
[2018-05-21] MEDS ORDERED: Influenza (Quadrivalent) Vaccine 0.5 ML Syringe IM ONE (21:00)
[2018-05-21] MEDS: Labetalol 200 MG Tablet PO SCH (21:21)
[2018-05-22] MEDS: Labetalol 200 MG Tablet PO SCH (08:14)
--- NOTE | 2018-05-22 08:27 | P.PNOB ---
Subjective Post day: 3 Interval history: day #3. Decreased lochia. Denies dysuria. No breast pain. Appetite good today without nausea or vomiting. Ambulating well. Denies calf pain or shortness of breath. Had headache yesterday morning, but has since resolved. Denies visual changes. Otherwise, she is doing well this morning and has no other complaints. Objective Vital Signs/I&O: Vital Signs 05/21/18 10:35 05/21/18 16:30 05/21/18 20:30 Temperature 98.9 F Pulse Rate 76 Respiratory Rate 18 Blood Pressure 152/75 H 140/81 147/87 H 05/21/18 23:56 05/21/18 23:57 05/22/18 03:48 Temperature 98.9 F 98.6 F Pulse Rate 67 63 71 Respiratory Rate 18 18 Blood Pressure 143/94 H 146/91 H 146/78 H Result Diagrams: 05/18/18 00:40 05/18/18 00:40 Objective Remarks: General: Alert, well appearing, in no acute distress Skin: Warm and dry HEENT: Atraumatic. Moist mucus membranes Cardiac: Regular rate and rhythm without murmur Pulmonary: No increased work of breathing. Clear to auscultation bilaterally with good air movement. Abdominal: Non-tender. uterus firm and below the umbilicus Extremities: 2+ pedal pulses, no edema, no calf tenderness Medications and IVs: Active Medications Acetaminophen (Tylenol) 650 mg PO Q4H PRN PRN Reason: HEADACHE Last Admin: 05/20/18 16:58 Dose: 650 mg Acetaminophen (Tylenol) 650 mg PO Q4H PRN PRN Reason: PAIN SCALE 1 TO 2 Last Admin: 05/20/18 01:44 Dose: 650 mg Al Hydroxide/Mg Hydroxide (Milk Of Magncristian Liq) 30 ml PO Q12H PRN PRN Reason: Mild Constipation Benzocaine (Americaine 20% Top [place]) 1 spray TOPICAL Q4H PRN PRN Reason: For Perineum Discomfort Last Admin: 05/21/18 02:16 Dose: 1 spray Bisacodyl (Dulcolax Supp) 10 mg RECTAL DAILY PRN PRN Reason: SEVERE CONSITIPATION Calcium Gluconate (Calcium Gluconate Inj) 1 gm IV.PUSH PRN PRN PRN Reason: Magnesium toxicity Fluoxetine HCl (Prozac) 20 mg PO DAILY [facility] Last Admin: 05/21/18 15:48 Dose: 20 mg Oxytocin (Pitocin 30 Units/Ns 500 Ml Premix) 30 units in 500 mls @ 1 mls/hr IV.SIG TITRATE PRN; Protocol PRN Reason: For induction of labor Last Titration: 05/20/18 01:05 Dose: Infused Fentanyl/Bupivacaine/Sodium Chlor (Fentanyl 2 Mcg-Bupiv 0.125% Epi) 150 mls @ 12 mls/hr EPIDURAL PRN PRN PRN Reason: for Labor Pain Last Admin: 05/19/18 11:18 Dose: 12 mls/hr Oxytocin (Pitocin 30 Units/Ns 500 Ml Premix) 30 units in 500 mls @ 100 mls/hr IV.CONT UNSCH PRN PRN Reason: Heavy bleeding Last Admin: 05/20/18 00:09 Dose: 100 mls/hr Ibuprofen (Motrin) 800 mg PO Q8H PRN PRN Reason: For Cramping Last Admin: 05/22/18 06:21 Dose: 800 mg Labetalol HCl (Trandate) 200 mg PO BID [facility] Last Admin: 05/22/18 08:14 Dose: 200 mg Lactulose (Lactulose Liq) 30 ml PO DAILY PRN PRN Reason: SEVERE CONSITIPATION Naloxone HCl (Narcan Inj) 0.1 mg IV.PUSH Q2M PRN PRN Reason: for opiate reversal Ondansetron HCl (Zofran Inj) 4 mg IV.PUSH Q6H PRN PRN Reason: NAUSEA Last Admin: 05/19/18 10:12 Dose: 4 mg Ondansetron HCl (Zofran Odt) 4 mg PO Q6H PRN PRN Reason: NAUSEA OR VOMITING Oxycodone/Acetaminophen (Percocet 5/325 Mg) 1 tab PO Q4H PRN PRN Reason: PAIN SCALE 3 TO 5 Last Admin: 05/22/18 06:21 Dose: 1 tab Senna/Docusate Sodium (Treva-Colace) 1 tab PO BID [facility] Last Admin: 05/21/18 22:38 Dose: Not Given Sennosides (Senokot) 17.2 mg PO Q12H PRN PRN Reason: Moderate Constipation Sodium Chloride (Ns Flush) 2 ml IV.FLUSH BID [facility] Last Admin: 05/21/18 22:38 Dose: Not Given Sodium Chloride (Ns Flush) 2 ml IV.FLUSH PRN PRN PRN Reason: FLUSH AFTER USING IV ACCESS Sodium Chloride (Ns Flush) 2 ml IV.FLUSH BID [facility] Last Admin: 05/21/18 22:38 Dose: 2 ml Sodium Chloride (Ns Flush) 2 ml IV.FLUSH PRN PRN PRN Reason: FLUSH AFTER USING IV ACCESS Trazodone HCl (Desyrel) 50 mg PO HS [facility] Last Admin: 05/21/18 22:38 Dose: Not Given Witch Melinda/Glycerin (Tucks Pads) 1 applicatio RECTAL QID PRN PRN Reason: HEMORRHOIDS Last Admin: 05/21/18 02:16 Dose: 1 applicatio Zolpidem Tartrate (Ambien) 5 mg PO HS PRN PRN Reason: SLEEP Assessment and Plan - Diagnosis (1) Vaginal delivery Code(s): O80 - Encounter for full-term uncomplicated delivery Status: Acute (2) Pre-eclampsia affecting childbirth Code(s): O14.94 - Unspecified pre-eclampsia, complicating childbirth Status: Acute - Plan day #3, patient delivered as a 33 year old at 39 weeks admitted for induction of labor. Hypertensive, on labetalol. -Hypertensive, on magnesium before delivery -Headache has resolved and no other signs of severe preeclampsia -Labetalol to 200 BID -Blood pressure has been in the 140s over the 90s on this regimen -She will need close follow-up with [facility] here -Anticipate discharge home today D/W Dr. Flores
[2018-05-22 09:40] VITALS: RESP 20
[2018-05-22 09:41] VITALS: TEMP 98.2
[2018-05-22] MEDS: FLUoxetine 20 MG Capsule PO SCH (10:08)
[2018-05-22] MEDS: Senna/Docusate Sodium 8.6/50 MG Tablet PO SCH (12:13)
[2018-05-22 12:22] VITALS: BP 144/89; PULSE 75
== END 2018-05-22 12:50 | disposition home or self-care (01) ==
LOC: H2E 23:29 → H1EA 05-20 23:20
PROVIDERS: ADMIT Obstetrics & Gynecology; ATTEND Obstetrics & Gynecology

== ENCOUNTER 2018-07-04 14:05 | Inpatient (IN) ==
[2018-07-04 16:32] LABS: Baso % (Auto) 0.5 % (0.0-2.0); Eos # (Auto) 0.1 th/mm3 (0.0-0.4); Hematocrit 32.7 % (35.0-46.0); Hemoglobin 11.7 gm/dL (11.6-15.3); Lymph # (Auto) 1.7 th/mm3 (1.0-4.8); Lymph % (Auto) 23.4 % (9.0-44.0); Mean Corpuscular HGB Conc 35.8 % (32.0-36.0); Mean Corpuscular Hemoglobin 29.1 pg (27.0-34.0); Mean Corpuscular Volume 81.4 fL (80.0-100.0); Mono # (Auto) 0.4 th/mm3 (0.0-0.9); Mono % (Auto) 5.1 % (0.0-8.0); Neut # (Auto) 5.2 th/mm3 (1.8-7.7); Platelet Count 349 th/mm3 (150-450); Red Blood Count 4.02 mil/mm3 (4.00-5.30); Red Cell Distribution Width 13.6 % (11.6-17.2); White Blood Count 7.4 th/mm3 (4.0-11.0)
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
[2018-07-04 17:03] LABS: Alanine Aminotransferase 19 U/L (10-53); Albumin 3.7 g/dL (3.4-5.0); Anion Gap 9 meq/L (5-15); Aspartate Aminotransferase 17 U/L (15-37); Blood Urea Nitrogen 13 mg/dL (7-18); Calcium 8.2 mg/dL (8.5-10.1); Carbon Dioxide 25.5 meq/L (21.0-32.0); Chloride 106 meq/L (98-107); Glomerular Filtration Rate 85 mL/min (>89); Glucose,Random 94 mg/dL (74-106); Magnesium 1.9 mg/dL (1.5-2.5); Sodium 140 meq/L (136-145)
[2018-07-04 17:13] LABS: Alkaline Phosphatase 72 U/L (45-117); Total Protein 8.3 g/dL (6.4-8.2)
[2018-07-04 17:51] LABS: Bilirubin,Urine Negative (Negative); Clarity,Urine Clear (Clear); Color,Urine Yellow (Yellw/Straw); Glucose,Urine (UA) Negative (Negative); Leukocyte Esterase,Urine Negative (Negative); Mucus,Urine Few /lpf (Occasional); Nitrite,Urine Negative (Negative); Specific Gravity,Urine 1.023 (1.002-1.035); Squamous Epithelial Cell,Urine 1 /hpf (0-5)
[2018-07-04 17:53] LABS: Amphetamine Screen,Urine Neg (Neg); Barbiturate Screen,Urine Neg (Neg); Cannabinoid Screen,Urine Pos (Neg); Cocaine Screen,Urine Neg (Neg)
[2018-07-04 18:05] LABS: Opiate Screen,Urine Neg (Neg)
[2018-07-04] MEDS ORDERED: Acetaminophen 325 MG Tablet PO PRN (20:34)
[2018-07-04] MEDS ORDERED: Aluminum/Magnesium/Simethacone Susp 30 ML UDC PO PRN (20:34)
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
[2018-07-05] MEDS: ARIPiprazole 5 MG Tablet PO SCH ×2 (18:09→20:16)
[2018-07-05] MEDS: FLUoxetine 20 MG Capsule PO SCH (19:07)
[2018-07-06] MEDS: ARIPiprazole 5 MG Tablet PO SCH ×2 (08:18→20:49)
[2018-07-06] MEDS: FLUoxetine 20 MG Capsule PO SCH (08:18)
--- NOTE | 2018-07-06 10:50 | P.PNPSY ---
Subjective Remarks: Reviewed electronic record and discussed with nursing staff. Rounded with AMIRA Vines. Patient states that she has a long hx of Bipolar. She is 7 weeks post and she was living in her family home with her and boyfriend. Her brother is a trigger for the patient. She started escalating which she believes put her into a manic state. At that time, she felt homicidal towards her brother. She started Abilify and she feels that the medication is helping. She is not longer feeling homicidal. Her boyfriend and the have relocated to his mother's house and that is where the patient will go after discharge. Patient is preoccupied with getting back to her . She is cooperative, medication compliant and feels that she is improving. Endorses some insomnia , will start on Trazodone , which patient has been on in the past. Review of Systems All other systems reviewed negative except as stated in HPI Mental Status Examination Appearance: Appropriate Consciousness: Alert, Vigilant Motor Activity: Normal gait Speech: Unremarkable Language: Adequate Fund of Knowledge: Adequate Attention and Concentration: Adequate Memory: Unremarkable Mood: Manic (Mildly cell) Affect: Appropriate, Other (Slight increased range and intensity) Thought Process & Associations: Intact Thought Content: Appropriate Hallucination Type: None Delusion Type: None Suicidal Ideation: No Suicidal Plan: No Suicidal Intention: No Homicidal Ideation: No Homicidal Plan: No Homicidal Intention: No Insight: Fair Judgment: Impulsive Assessment and Plan - Assessment (1) Bipolar disorder Code(s): F31.9 - Bipolar disorder, unspecified Status: Acute (2) Post depression Code(s): O99.345 - Other mental disorders complicating the puerperium; F53.0 - depression Status: Acute - Plan Plan: Estimated LOS: [3-4 days Continue current treatment plan. Justification for Continued Inpatient Stay: Moving patient to a less restrictive environment may result in her decompensation. Request Healthcare Surrogate/Guardian Advocate?: No
[2018-07-06] MEDS: traZODone 50 MG Tablet PO SCH (20:49)
[2018-07-07] MEDS: FLUoxetine 20 MG Capsule PO SCH (09:18)
[2018-07-07] MEDS: ARIPiprazole 5 MG Tablet PO SCH ×2 (09:18→20:14)
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
[2018-07-07] MEDS: traZODone 50 MG Tablet PO SCH (20:14)
[2018-07-08] MEDS: FLUoxetine 20 MG Capsule PO SCH (09:02)
[2018-07-08] MEDS: ARIPiprazole 5 MG Tablet PO SCH ×2 (09:02→21:19)
--- NOTE | 2018-07-08 10:19 | P.PNPSY ---
Subjective Chief Complaint: Thoughts of aggression toward younger brother, depressed mood, feelings of detachment from 2-month-old daughter Remarks: Sunday July 08, 2018 Subjective: Patient had a comfortable evening. Nurses revealed that the patient ask for him received Atarax 50 mg prior to the interview with her father and her boyfriend. The patient claims that she did not know what the outcome of that meeting might be and so was anxious. She claims the meeting went well and the plan for post discharge was according to prior expectations. She will be moving in with boyfriend's parents who will assist her with the care of the child. Her concern had been that her father might insist that she return to her residence with her parents and brother. She remains anxious about her negative feelings toward her brother, but denies any suicidal homicidal ideation. Patient did reveal for the first time that she had considered suicide and had gone so far as to leave her phone and shoes at home with the thought of walking to the bridge and jumping off the bridge. She said she became uncomfortable to walk and return home having decided against suicide. This is new information and not revealed in the initial interview yesterday. Patient denies any serious use of cannabis, but has no explanation for why she tested positive for cannabis. Her first year free from opiates will be August 02, 2018. She does state that she is going to continue to attend AA meetings. We discussed outpatient planning with the idea of the patient being referred to [facility] for dual diagnosis follow-up. The patient anticipates she may require an additional day in the hospital and has asked that she have an opportunity to meet with her 2-month-old daughter. We discussed in team this consideration and plan to have a meeting with her boyfriend who might bring in the child along with her father so that there is a better picture of the patient's interaction with her infant daughter. Objective: The patient's mood seems stable. There appears to be less elevation. Cognition is good and unchanged. There is no anxiety observed. Assessment: Some improvement. No difficulties with side effects from the medication. No motor change, no changes in appetite associated with her 5 mg Abilify twice daily. Plan: Patient will meet with her boyfriend and have an opportunity to be observed with her infant daughter by her therapist. Patient mentioned that she has missed her baby need for another day in the hospital would be most grateful for an opportunity to see the baby. Review of Systems Review of symptoms: the patient today complains of burning on urination and frequency. Mental Status Examination Appearance: Appropriate Consciousness: Alert Motor Activity: Normal gait Language: Adequate Fund of Knowledge: Adequate Attention and Concentration: Adequate Memory: Unremarkable Mood: Good Affect: Appropriate Thought Process & Associations: Intact ( not accelerated as yesterday) Thought Content: Appropriate Hallucination Type: None Delusion Type: None Suicidal Ideation: No Suicidal Plan: No Suicidal Intention: No Homicidal Ideation: No Homicidal Plan: No Homicidal Intention: No Insight: Adequate (Some somatic complaints including need for Chapstick and now today some complaints of urinary frequency and burning on urination) Judgment: Impulsive Assessment and Plan - Assessment (1) Psychiatric disturbance Code(s): F99 - Mental disorder, not otherwise specified Status: Acute - Plan Plan: Patient will be started on Abilify 5 mg twice daily and her Prozac will be continued. The patient does show some increased intensity of mood and acceleration of thought processes. For more details of the treatment considerations and decision making issues see progress note narrative. Management is made complex by multiple stressors:multiple diagnoses, severity of symptoms causing insomnia, fatigue, with fragile self control and self treatment with cannabinoids. Hep C is stable at present. Although the patient denies thoughts of harming her child the intensity of an infants demands stressor usually increases at 3 months and continues thru the ninth month. There is a need for intense outpatient follow up and no current psychiatric or therapist relationship. Justification for Continued Inpatient Stay: Patient remains anxious at times and has some minor somatic issues: Lips chapped and urinary frequency and burning. Patient has not been forthcoming about her use of cannabis at a time when she is in a recovery program. She continues to have some anxiety issues surrounding the changes in environment with a moved to her boyfriend's home. In discussing discharge plans with her, she indicated a quest for refill of home medications, knowing that she would need to be seen in the next 3 weeks on an outpatient basis. The patient reasonably is in a hurry to return to her home and to the care of her daughter, but collateral information is needed for insurance that the child will be safe in her care. There is also the recent history of insomnia for which she admits is usually the prodrome for a manic episode. The problems of post hypertension and continuation of treatment for the hypertension, the new symptom of cystitis, the possible need for increasing Prozac, the consideration that the Prozac is causing some of the burning and cystitis-like symptoms, along with the patient's lack of forthrightness indicate a need for 1-2 days stay. Discharge Planning: Patient was discussed in team and plans put in place as noted above. These would indicate a need for post discharge outpatient plan and a clear understanding of the support system as obtained through collateral information. Patient discharge will require an additional 1-2 days inpatient Request Healthcare Surrogate/Guardian Advocate?: No - Attending Attestation I attest that continued inpatient services need to be for an additional 1-2 days for evaluation and assessment of the effectiveness of her medication and plans for follow-up.
[2018-07-08 11:06] LABS: Bacteria,Urine Occasional /hpf; Bilirubin,Urine Negative (Negative); Clarity,Urine Hazy (Clear); Color,Urine Yellow (Yellw/Straw); Glucose,Urine (UA) Negative (Negative); Leukocyte Esterase,Urine Moderate (Negative); Mucus,Urine Few /lpf (Occasional); Nitrite,Urine Negative (Negative); Specific Gravity,Urine 1.016 (1.002-1.035); Squamous Epithelial Cell,Urine 6 /hpf (0-5)
[2018-07-08 17:45] VITALS: RESP 18
[2018-07-08] MEDS: traZODone 50 MG Tablet PO SCH (21:19)
[2018-07-09 06:00] VITALS: BP 132/78; PULSE 75; TEMP 97.5; O2SAT 99
[2018-07-09] MEDS: ARIPiprazole 5 MG Tablet PO SCH (09:26)
[2018-07-09] MEDS: FLUoxetine 20 MG Capsule PO SCH (09:26)
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
== END 2018-07-09 11:05 | disposition home or self-care (01) ==
LOC: NEPJ 14:05 → NEDA 20:56 → H260 21:41
PROVIDERS: ADMIT Psychiatry & Neurology Child & Adolescent Psychiatry; ATTEND Psychiatry & Neurology Child & Adolescent Psychiatry